=== PATIENT | female | born 1970 | race Caucasian/White ===

== ENCOUNTER 2017-02-22 09:56 | Inpatient (IN) | payer SELFPAY ==
[2017-02-22] VITALS (10 sets, daily range): BP systolic 85–137; BP diastolic 62–96; PULSE 79–136; RESP 10–20; TEMP 97–98.4; O2SAT 96–100
[~2017-02-22] VITALS: Ht 170.2 cm; Wt 51.4 kg
[~2017-02-22 09:56] MED LIST: BACI500O8 TOP; BACT PO; FLUO40CA PO; FOLI800T12 PO; FURO20 PO; GABA100C4 PO; LACT20SO4 PO; MULT-65 PO; PROB1TAB; PROP1TAB66 PO; THIA100T PO; TRAZ100 PO
[2017-02-22] MEDS ORDERED: SODIUM CHLORIDE 0.9% FLUSH 10 ML FLUSH IV FLUSH PRN ×2 (10:15→12:45)
[2017-02-22] MEDS ORDERED: SODIUM CHLOR 0.9% 1000 ML INJ 1,000 ML IV SCH (10:15)
[2017-02-22] MEDS ORDERED: ONDANSETRON HCL 4 MG/2 ML VIAL IVP ONE (10:15)
--- NOTE | 2017-02-22 10:30 | PD ---
HPI Chief Complaint: Fall Time Seen by Provider: 10:15 Travel History International Travel<30 days: No Contact w/Intl Traveler<30days: No Traveled to known affect area: No History of Present Illness HPI The patient is a 46-year-old female who presents to the emergency department after a fall that occurred Tuesday night. The patient has a history of heavy alcohol use, was drinking Tuesday night, when she fell. The patient is unsure if there was loss of consciousness, however, notes that she has a hematoma over the frontal forehead as well as bruising under the eyes bilaterally. The patient also states that she fell 3 weeks ago, struck the back of her head, and has a hematoma that has progressively gotten smaller over the last several weeks. The patient does complain of mild frontal headache. The patient now complains of nausea, vomiting, with a few episodes of diarrhea. The patient estimates 5-10 pound weight loss of last several days secondary to poor oral intake. The patient does have a history of chronic pancreatitis secondary to alcohol use as well as a history of neuropathy secondary to alcohol use and diabetes. The patient denies any chest pain, shortness of breath, or abdominal pain. The patient also states she was recently placed on a blood pressure medication by her primary physician, states she's felt dizzy since she started the blood pressure medication several weeks ago. Symptoms are moderate, possibly exacerbated by alcohol use, and there are no current alleviating factors. PFSH Past Medical History Anemia: Yes Arthritis: No Asthma: No Autoimmune Disease: No Anxiety: Yes Depression: Yes Heart Rhythm Problems: No Cancer: No Cardiovascular Problems: Yes High Cholesterol: Yes Chemotherapy: No Chest Pain: No Congestive Heart Failure: No COPD: No Cerebrovascular Accident: No Diabetes: Yes Patient Takes Glucophage: No Diminished Hearing: No Endocrine: No Gastrointestinal Disorders: Yes (Cirrhosis ) GERD: Yes Genitourinary: Yes (STATES THERE IS A MASS LT KIDNEY) Headaches: No Hiatal Hernia: No Hypertension: Yes Immune Disorder: No Implanted Vascular Access Dvce: Yes Kidney Stones: No Musculoskeletal: No Neurologic: Yes (NEUROPATHY) Psychiatric: Yes Reproductive: No Respiratory: No Immunizations Current: No Migraines: Yes Pancreatitis: Yes Radiation Therapy: No Renal Failure: Yes Seizures: Yes Sickle Cell Disease: No Sleep Apnea: No Thyroid Disease: No Ulcer: No Tetanus Vaccination: > 5 Years Influenza Vaccination: Yes ?: Not Menopausal: Yes : 1 Para: 0 Miscarriage: 1 : 0 Ovarian Cysts: Yes Past Surgical History Abdominal Surgery: No AICD: No Arteriovenous Shunt: No Body Medical Devices: Bilateral brest implants Cardiac Surgery: Yes Ear Surgery: No Endocrine Surgery: No Eye Surgery: No Genitourinary Surgery: No Gynecologic Surgery: Yes (Biopsy of cervix) Insulin Pump: No Joint Replacement: No Neurologic Surgery: No Oral Surgery: No Pacemaker: No Thoracic Surgery: Yes (Breast augmentation) Other Surgery: Yes (breast implants) Social History Alcohol Use: Yes (STATES CURRENT ALCOHOL WITHDRAWAL) Tobacco Use: No Substance Use: Yes (ABUSE OF "PILLS" ) Allergies-Medications (Allergen,Severity, Reaction): Coded Allergies: Blueberry (Verified Allergy, Severe, 02/22/17) Aspirin (Verified Allergy, Intermediate, 02/22/17) Reported Meds & Prescriptions Reported Meds & Active Scripts Active Reported [Hypertension Med] Prozac (Fluoxetine HCl) 40 Mg Cap 40 Mg PO DAILY Protonix (Pantoprazole Sodium) 40 Mg Tab 40 Mg PO DAILY Levemir Inj (Insulin Detemir) 1,000 unit/ 10 ML Vial 10 Units SQ HS Do not mix with any other Insulin. Novolog Inj (Insulin Aspart) 1,000 Unit/10 Ml Vial 0 SQ DIRECTED Sliding Scale as directed. Gabapentin 600 Mg Tab 600 Mg PO TID Review of Systems Except as stated in HPI: all other systems reviewed are Neg General / Constitutional: No: Fever Eyes: Positive: Blurred Vision HENT: Positive: Headaches, No: Neck Pain Cardiovascular: No: Chest Pain or Discomfort Respiratory: No: Shortness of Breath Gastrointestinal: Positive: Nausea, Vomiting, Diarrhea, No: Abdominal Pain Musculoskeletal: Positive: Weakness Neurologic: Positive: Weakness, Dizziness, Headache, Paresthesia (history of neuropathy secondary to alcohol use and diabetes), No: Change in Mentation Psychiatric: Positive: Substance Abuse (alcohol abuse) Physical Exam Narrative GENERAL: Awake, alert, pleasant 46-year-old female who appears her stated age and is in no acute respiratory distress. SKIN: Focused skin assessment warm/dry. HEAD: Hematoma noted over the right frontal forehead. Raccoon eyes bilaterally. Small hematoma to the superior occipital region. EYES: Pupils equal and round. Pupils are 3 mm bilateral and reactive. EOMs are intact. ENT: No nasal bleeding or discharge. Mucous membranes pink and moist. NECK: Trachea midline. No JVD. No tenderness of the cervical vertebrae. CARDIOVASCULAR: Regular, tachycardic with a heart rate of 130. RESPIRATORY: No accessory muscle use. Clear to auscultation. Breath sounds equal bilaterally. GASTROINTESTINAL: Abdomen soft, non-tender, nondistended. No rebound tenderness. MUSCULOSKELETAL: No obvious deformities. No clubbing. No cyanosis. No edema. Atrophy of the arms and legs noted. NEUROLOGICAL: Awake and alert. No obvious cranial nerve deficits. Motor grossly within normal limits. Normal speech. Nonfocal. PSYCHIATRIC: Appropriate mood and affect; insight and judgment normal. Data Data Last Documented VS Vital Signs Date Time Temp Pulse Resp B/P Pulse Ox O2 Delivery O2 Flow Rate FiO2 02/22/17 10:22 116 18 99 Room Air 02/22/17 10:22 85/70 02/22/17 09:59 98.4 Orders Complete Blood Count With Diff (02/22/17 10:15) Comprehensive Metabolic Panel (02/22/17 10:15) Lipase (02/22/17 10:15) Prothrombin Time / Inr (Pt) (02/22/17 10:15) Act Partial Throm Time (Ptt) (02/22/17 10:15) Iv Access Insert/Monitor (02/22/17 10:15) Ecg Monitoring (02/22/17 10:15) Oximetry (02/22/17 10:15) Ondansetron Inj (Zofran Inj) (02/22/17 10:15) Sodium Chlor 0.9% 1000 Ml Inj (Ns 1000 M (02/22/17 10:15) Sodium Chloride 0.9% Flush (Ns Flush) (02/22/17 10:15) Magnesium (Mg) (02/22/17 10:15) Ct Brain W/O Iv Contrast(Rout) (02/22/17 ) Sodium Chlor 0.9% 1000 Ml Inj (Ns 1000 M (02/22/17 11:30) Type And Screen (02/22/17 12:21) Potassium Chloride (Kcl) (02/22/17 12:30) Potassium Chlor 20 Meq Premix (Kcl 20 Me (02/22/17 12:30) Admit Order (Ed Use Only) (02/22/17 12:43) Magnesium Sulfate 1 Gm Premix (Magnesium (02/22/17 12:45) Labs Laboratory Tests Test 02/22/17 11:00 White Blood Count 2.7 TH/MM3 Red Blood Count 1.99 MIL/MM3 Hemoglobin 7.7 GM/DL Hematocrit 23.0 % Mean Corpuscular Volume 115.8 FL Mean Corpuscular Hemoglobin 38.5 PG Mean Corpuscular Hemoglobin 33.2 % Concent Red Cell Distribution Width 20.4 % Platelet Count 59 TH/MM3 Mean Platelet Volume 6.7 FL Neutrophils (%) (Auto) 58.3 % Lymphocytes (%) (Auto) 29.4 % Monocytes (%) (Auto) 10.8 % Eosinophils (%) (Auto) 0.3 % Basophils (%) (Auto) 1.2 % Neutrophils # (Auto) 1.6 TH/MM3 Lymphocytes # (Auto) 0.8 TH/MM3 Monocytes # (Auto) 0.3 TH/MM3 Eosinophils # (Auto) 0.0 TH/MM3 Basophils # (Auto) 0.0 TH/MM3 CBC Comment AUTO DIFF Differential Comment AUTO DIFF CONFIRMED Platelet Estimate LOW Platelet Morphology Comment NORMAL Target Cells 2+ Ovalocytes 1+ Keratocytes OCC Prothrombin Time 13.3 SEC Prothromb Time International 1.2 RATIO Ratio Activated Partial 23.4 SEC Thromboplast Time Sodium Level 135 MEQ/L Potassium Level 2.6 MEQ/L Chloride Level 96 MEQ/L Carbon Dioxide Level 28.6 MEQ/L Anion Gap 10 MEQ/L Blood Urea Nitrogen 7 MG/DL Creatinine 1.50 MG/DL Estimat Glomerular Filtration 37 ML/MIN Rate Random Glucose 100 MG/DL Calcium Level 9.6 MG/DL Magnesium Level 1.0 MG/DL Total Bilirubin 1.0 MG/DL Aspartate Amino Transf 218 U/L (AST/SGOT) Alanine Aminotransferase 73 U/L (ALT/SGPT) Alkaline Phosphatase 177 U/L Total Protein 8.2 GM/DL Albumin 3.9 GM/DL Lipase 45 U/L MDM Medical Decision Making Medical Screen Exam Complete: Yes Emergency Medical Condition: Yes Medical Record Reviewed: Yes Interpretation(s) Laboratory Tests Test 02/22/17 11:00 White Blood Count 2.7 TH/MM3 Red Blood Count 1.99 MIL/MM3 Hemoglobin 7.7 GM/DL Hematocrit 23.0 % Mean Corpuscular Volume 115.8 FL Mean Corpuscular Hemoglobin 38.5 PG Mean Corpuscular Hemoglobin 33.2 % Concent Red Cell Distribution Width 20.4 % Platelet Count 59 TH/MM3 Mean Platelet Volume 6.7 FL Neutrophils (%) (Auto) 58.3 % Lymphocytes (%) (Auto) 29.4 % Monocytes (%) (Auto) 10.8 % Eosinophils (%) (Auto) 0.3 % Basophils (%) (Auto) 1.2 % Neutrophils # (Auto) 1.6 TH/MM3 Lymphocytes # (Auto) 0.8 TH/MM3 Monocytes # (Auto) 0.3 TH/MM3 Eosinophils # (Auto) 0.0 TH/MM3 Basophils # (Auto) 0.0 TH/MM3 CBC Comment AUTO DIFF Differential Comment AUTO DIFF CONFIRMED Platelet Estimate LOW Platelet Morphology Comment NORMAL Target Cells 2+ Ovalocytes 1+ Keratocytes OCC Prothrombin Time 13.3 SEC Prothromb Time International 1.2 RATIO Ratio Activated Partial 23.4 SEC Thromboplast Time Sodium Level 135 MEQ/L Potassium Level 2.6 MEQ/L Chloride Level 96 MEQ/L Carbon Dioxide Level 28.6 MEQ/L Anion Gap 10 MEQ/L Blood Urea Nitrogen 7 MG/DL Creatinine 1.50 MG/DL Estimat Glomerular Filtration 37 ML/MIN Rate Random Glucose 100 MG/DL Calcium Level 9.6 MG/DL Magnesium Level 1.0 MG/DL Total Bilirubin 1.0 MG/DL Aspartate Amino Transf 218 U/L (AST/SGOT) Alanine Aminotransferase 73 U/L (ALT/SGPT) Alkaline Phosphatase 177 U/L Total Protein 8.2 GM/DL Albumin 3.9 GM/DL Lipase 45 U/L Last Impressions Head CT 02/22/17 0000 Signed Impressions: Service Date/Time: Wednesday, February 22, 2017 11:29 - CONCLUSION: Soft tissue swelling no evidence of hemorrhage. Vladimir Anderson MD Differential Diagnosis Differential diagnosis includes alcohol withdrawal, subdural hemorrhage, subarachnoid hemorrhage, basal skull fracture, hypomagnesemia, hypokalemia, dehydration. Narrative Course IV was established, labs are drawn and sent, and the patient was placed on cardiac telemetry monitoring and continuous pulse oximetry monitoring. CT of the brain was ordered. The patient was administered Zofran and IV fluids. The patient's CT of the brain is negative. The patient's hemoglobin, white count, and platelets are low, most likely myelosuppression from chronic alcohol use. The patient's potassium is low at 2.6, magnesium is low at 1.0, these will be replaced intravenously and orally. The patient is dehydrated, was administered 2 L of IV fluids, her blood pressure responded to 120/80 and her heart rate came down into the 80s. I believe the patient's anemia will be exacerbated as she was dehydrated, most likely will be less than 7, bili the patient does have symptomatic anemia and will require PRBC transfusion. Therefore, type and screen was ordered. I discussed the patient with the on-call hospitalist, Dr. Sorensen, who agrees with admission. Physician Communication Physician Communication I discussed the patient with Dr. Sorensen who agrees with admission. Diagnosis Primary Impression: Pancytopenia Additional Impressions: Symptomatic anemia Hypokalemia Hypomagnesemia Admitting Information Admitting Physician Requests: Admit Condition: Stable Albaro Rodriguez MD Feb 22, 2017 10:30
[2017-02-22] MEDS ORDERED: HYPERTENSION MED (10:33)
[2017-02-22] MEDS ORDERED: PROZ40CA PO (10:33)
[2017-02-22] MEDS ORDERED: NOVOLOGP2 SQ (10:33)
[2017-02-22] MEDS ORDERED: GABA600T PO (10:33)
[2017-02-22] MEDS ORDERED: LEVEMIR SQ (10:33)
[2017-02-22] MEDS ORDERED: PROT40TA PO (10:33)
[2017-02-22 11:20] LABS: AUTOMATED NEUTROPHIL # 1.6 TH/MM3 (1.8-7.7); BASOPHIL % 1.2 % (0.0-2.0); EOSINOPHIL % 0.3 % (0.0-4.0); LYMPH % 29.4 % (9.0-44.0); LYMPHOCYTE # 0.8 TH/MM3 (1.0-4.8); MEAN CELL VOLUME 115.8 FL (80.0-100.0); MEAN CORPUSCULAR HEMOGLOBIN 38.5 PG (27.0-34.0); MEAN CORPUSCULAR HGB CONC 33.2 % (32.0-36.0); MONO % 10.8 % (0.0-8.0); NEUT % 58.3 % (16.0-70.0); PLATELET COUNT 59 TH/MM3 (150-450); RED BLOOD COUNT 1.99 MIL/MM3 (4.00-5.30); RED CELL DISTRIBUTION WIDTH 20.4 % (11.6-17.2); WHITE BLOOD COUNT 2.7 TH/MM3 (4.0-11.0)
[2017-02-22] MEDS ORDERED: SODIUM CHLOR 0.9% 1000 ML INJ 1,000 ML IV ONE (11:30)
[2017-02-22 11:32] LABS: APTT (PATIENT) 23.4 SEC (24.3-30.1); HEMO FLAGS AUTO DIFF; INTERNATIONAL NORMALIZED RATIO 1.2 RATIO; PROTHROMBIN TIME - PATIENT 13.3 SEC (9.8-11.6)
--- NOTE | 2017-02-22 11:45 | RADHPO ---
EXAM DATE/TIME: 02/22/2017 11:29 [facility] COMPARISON: CT BRAIN W/O CONTRAST, October 04, 2016, 3:54. INDICATIONS : Fell and hit forehead. Headache. RADIATION DOSE: 61.21 CTDIvol (mGy) MEDICAL HISTORY : Seizures. Hypertension. SURGICAL HISTORY : Hysterectomy. ENCOUNTER: Initial ACUITY: 4 - 6 days PAIN SCALE: 3/10 LOCATION: frontal TECHNIQUE: Multiple contiguous axial images were obtained of the head. Using automated exposure control and adj ustment of the mA and/or kV according to patient size, radiation dose was kept as low as reasonably a chievable to obtain optimal diagnostic quality images. FINDINGS: CEREBRUM: The ventricles are normal for age. No evidence of midline shift, mass lesion, hemorrhage or acute in farction. No extra-axial fluid collections are seen. POSTERIOR FOSSA: The cerebellum and brainstem are intact. The 4th ventricle is midline. The cerebellopontine angle i s unremarkable. EXTRACRANIAL: The visualized portion of the orbits is intact. SKULL: The calvaria is intact. No evidence of skull fracture. There is soft tissue swelling over the right frontal and left parietal bone CONCLUSION: Soft tissue swelling no evidence of hemorrhage. Vladimir Anderson MD on February 22, 2017 at 11:40 Board Certified Radiologist. This report was verified electronically.
[2017-02-22 11:51] LABS: ALKALINE PHOSPHATASE 177 U/L (45-117); ALT (GPT) 73 U/L (10-53); ANION GAP 10 MEQ/L (5-15); AST (GOT) 218 U/L (15-37); BICARBONATE 28.6 MEQ/L (21.0-32.0); BLOOD UREA NITROGEN 7 MG/DL (7-18); CHLORIDE 96 MEQ/L (98-107); GLOMERULAR FILTRATION RATE 37 ML/MIN (>89); SODIUM (NA) 135 MEQ/L (136-145)
[2017-02-22 12:05] LABS: TARGET CELLS 2+ (NORMAL)
[2017-02-22 12:06] LABS: KERATOCYTES OCC (NORMAL); OVALOCYTES 1+ (NORMAL); PLATELET ESTIMATE SMEAR LOW (NORMAL); PLATELET MORPHOLOGY NORMAL (NORMAL)
[2017-02-22 12:07] LABS: SCAN/DIFF AUTO DIFF CONFIRMED
[2017-02-22 12:21] LABS: POTASSIUM 2.6 MEQ/L (3.5-5.1)
[2017-02-22] MEDS ORDERED: POTASSIUM CHLORIDE 20 MEQ CONTROLLED RELEASE TAB PO ONE (12:30)
[2017-02-22] MEDS ORDERED: POTASSIUM CHLOR 20 MEQ PREMIX 100 ML IV ONE (12:30)
[2017-02-22] MEDS ORDERED: LORazepam 2 MG TAB PO PRN (12:45)
[2017-02-22] MEDS ORDERED: LORazepam 2 MG/ML VIAL IV PUSH PRN ×4 (12:45)
[2017-02-22] MEDS ORDERED: ONDANSETRON HCL 4 MG/2 ML VIAL IVP PRN (12:45)
[2017-02-22] MEDS ORDERED: FLUMAZENIL 0.5 MG/5 ML VIAL IV PUSH PRN (12:45)
[2017-02-22] MEDS ORDERED: FOLIC ACID 1 MG TAB PO ONE (12:45)
[2017-02-22] MEDS ORDERED: NALOXONE HCL 0.4 MG/ML AMP IV PRN (12:45)
[2017-02-22] MEDS ORDERED: MAGNESIUM HYDROXIDE SUSP 30 ML CUP PO PRN (12:45)
[2017-02-22] MEDS ORDERED: ACETAMINOPHEN 325 MG TAB PO PRN ×2 (12:45→16:30)
[2017-02-22] MEDS ORDERED: MAGNESIUM SULFATE 1 GM PREMIX 100 ML IV SCH (12:45)
--- NOTE | 2017-02-22 13:03 | HHI.HP ---
HPI Service [facility] Primary Care Physician Brent Goodman MD Admission Diagnosis pancytopenia, symptomatic anemia, hypokalemia, hypomagnesemia Diagnoses: Travel History International Travel<30 Days: No Contact w/Intl Traveler <30 Da: No Traveled to Known Affected Are: No History of Present Illness Ms. Bearden is a 46 year old female with a history of alcoholism who presents to the ED for an evaluation of her head after a fall that occurred on Tuesday. She was drinking on Tuesday night. She sustained a hematoma over her frontal forehead as well as bruises around her eyes. She reported falling 3 weeks ago and sustained a hematoma at the back of her head. She reports no chest pain, shortness of breath, fever, chills. She does report nausea and vomiting for the last 4 days and diarrhea during the past one month. She has not been able to eat or drink much except yesterday she had half of a hamburger. Denies any changes in bowel habits. She reports about 15 lbs weight loss in the last 4-5 days. On arrival temperature 98.4 pulse 136 respiration 18 blood pressure 90/62 pulse oximetry 96% on room air. WBC 2.7 hemoglobin 7.7 hematocrit 23 MCV 115.8 platelet count 59. Sodium 135 potassium 2.6 magnesium 1.0 BUN 7 creatinine 1.5. AST 218 ALD [address] head shows soft tissue swelling without any evidence of hemorrhage. Review of Systems Except as stated in HPI: all other systems reviewed are Neg Past Family Social History Past Medical History Chronic pancreatitis, diabetes mellitus, diabetic neuropathy, liver cirrhosis. Past Surgical History Bilateral breast augmentation, cervical cone biopsy Reported Medications Active Reported [Hypertension Med] Prozac (Fluoxetine HCl) 40 Mg Cap 40 Mg PO DAILY Protonix (Pantoprazole Sodium) 40 Mg Tab 40 Mg PO DAILY Levemir Inj (Insulin Detemir) 1,000 unit/ 10 ML Vial 10 Units SQ HS Do not mix with any other Insulin. Novolog Inj (Insulin Aspart) 1,000 Unit/10 Ml Vial 0 SQ DIRECTED Sliding Scale as directed. Gabapentin 600 Mg Tab 600 Mg PO TID Allergies: Coded Allergies: Blueberry (Verified Allergy, Severe, 02/22/17) Aspirin (Verified Allergy, Intermediate, 02/22/17) Family History Father - from throat and lung cancer. Also had heart disease, diabetes mellitus. Mother has atrial fibrillation. Social History Patient denies any smoking or using illicit drugs. She drinks vodka whenever she can. Physical Exam Vital Signs Vital Signs Date Time Temp Pulse Resp B/P Pulse Ox O2 Delivery O2 Flow Rate FiO2 02/22/17 10:22 116 18 99 Room Air 02/22/17 10:22 116 18 85/70 99 Room Air 02/22/17 09:59 98.4 136 18 90/62 96 Physical Exam GENERAL: This is a well-nourished, well-developed patient, in no apparent distress. SKIN: No rashes, ecchymoses or lesions. Warm and dry. HEAD: Atraumatic. Normocephalic. No temporal or scalp tenderness. Forehead and occipital hematoma noted. No drainage. EYES: Pupils equal round and reactive. No injection or drainage. Bilateral orbital ecchymosis noted. ENT: Nose without bleeding, purulent drainage or septal hematoma. Airway patent. NECK: Trachea midline. No lymphadenopathy. Supple, nontender, no meningeal signs. CARDIOVASCULAR: Regular rate and rhythm without murmurs, gallops, or rubs. No JVD. RESPIRATORY: Clear to auscultation. Breath sounds equal bilaterally. No wheezes , rales, or rhonchi. GASTROINTESTINAL: Abdomen soft, non-tender, nondistended. No guarding. MUSCULOSKELETAL: Extremities without clubbing, cyanosis, or edema. NEUROLOGICAL: Awake and alert. Cranial nerves II through XII intact. No focal neurological deficits. Normal speech. Laboratory Laboratory Tests Test 02/22/17 11:00 White Blood Count 2.7 Red Blood Count 1.99 Hemoglobin 7.7 Hematocrit 23.0 Mean Corpuscular Volume 115.8 Mean Corpuscular Hemoglobin 38.5 Mean Corpuscular Hemoglobin 33.2 Concent Red Cell Distribution Width 20.4 Platelet Count 59 Mean Platelet Volume 6.7 Neutrophils (%) (Auto) 58.3 Lymphocytes (%) (Auto) 29.4 Monocytes (%) (Auto) 10.8 Eosinophils (%) (Auto) 0.3 Basophils (%) (Auto) 1.2 Neutrophils # (Auto) 1.6 Lymphocytes # (Auto) 0.8 Monocytes # (Auto) 0.3 Eosinophils # (Auto) 0.0 Basophils # (Auto) 0.0 CBC Comment AUTO DIFF Differential Comment AUTO DIFF CONFIRMED Platelet Estimate LOW Platelet Morphology Comment NORMAL Target Cells 2+ Ovalocytes 1+ Keratocytes OCC Prothrombin Time 13.3 Prothromb Time International 1.2 Ratio Activated Partial 23.4 Thromboplast Time Sodium Level 135 Potassium Level 2.6 Chloride Level 96 Carbon Dioxide Level 28.6 Anion Gap 10 Blood Urea Nitrogen 7 Creatinine 1.50 Estimat Glomerular Filtration 37 Rate Random Glucose 100 Calcium Level 9.6 Magnesium Level 1.0 Total Bilirubin 1.0 Aspartate Amino Transf 218 (AST/SGOT) Alanine Aminotransferase 73 (ALT/SGPT) Alkaline Phosphatase 177 Total Protein 8.2 Albumin 3.9 Lipase 45 Result Diagram: 02/22/17 1100 02/22/17 1100 Imaging Last Impressions Head CT 02/22/17 0000 Signed Impressions: Service Date/Time: Wednesday, February 22, 2017 11:29 - CONCLUSION: Soft tissue swelling no evidence of hemorrhage. Vladimir Anderson MD Assessment and Plan Problem List: (1) Alcohol abuse with intoxication ICD Code: F10.129 Status: Acute (2) DM (diabetes mellitus) ICD Code: E11.9 Status: Acute (3) Alcoholic cirrhosis ICD Code: K70.30 Status: Acute (4) Hypokalemia ICD Code: E87.6 Status: Acute (5) Hypomagnesemia ICD Code: E83.42 Status: Acute (6) Pancytopenia ICD Code: D61.818 Status: Acute (7) MARNI (acute kidney injury) ICD Code: N17.9 Status: Acute Assessment and Plan Ms. Bearden is a pleasant 46-year-old female with a history of alcoholism , diabetes mellitus who presented to the emergency Department for an evaluation of her head after sustaining a fall on 02/18/2017. CT head shows soft tissue hematoma but no intracranial hemorrhage. Patient was found to have acute kidney injury, hypomagnesemia, hypokalemia. - Acute alcohol intoxication - Fall due to alcohol use - Soft tissue hematoma on the forehead and back of head - CT head reviewed by me on 02/22/2017 which showed soft tissue swelling. - Extensively counseled patient regarding her alcohol habits. Patient verbalized understanding and motivated to quit alcohol. - Initiate CIWA protocol. - Thiamine 100 mg IV daily for 3 days then thiamine 100 mg by mouth daily for 30 days. - Folic acid 1 mg by mouth daily - Will check H&H this PM. - Acute kidney injury creatinine 1.5 - Hypomagnesemia with magnesium level I.0. - Hypokalemia with potassium level 2.6 - MARNI is likely due to dehydration. - Electrolyte depletion is likely due to nausea, vomiting, diarrhea as well as alcohol abuse. - Continue normal saline at 150 cc per hour. - Replace potassium with IV potassium. - We'll also start by mouth potassium tomorrow when patient is able to tolerate by mouth medications better. - Replace magnesium with 6 g of magnesium between today and tomorrow. - Anxiety - Will start Ativan 1mg every 8 hours when necessary for anxiety, agitation. - Chronic pain - Pain from head injury - Will start Percocet 5/325 Q6hrs PRN for pain 5-10. - Acetaminophen for headache, fever, pain 1-4. Full code. SCDs. Physician Certification 2 Midnight Certification Type: Admission for Inpatient Services Order for Inpatient Services The services are ordered in accordance with Medicare regulations or non- Medicare payer requirements, as applicable. In the case of services not specified as inpatient-only, they are appropriately provided as inpatient services in accordance with the 2-midnight benchmark. Estimated LOS (days): 2 days is the estimated time the patient will need to remain in the hospital, assuming treatment plan goals are met and no additional complications. Post-Hospital Plan: Home Akhil Sorensen DO Feb 22, 2017 1:03 pm
[2017-02-22] MEDS: MAGNESIUM SULFATE 1 GM PREMIX 100 ML IV SCH ×4 (13:32→18:00)
[2017-02-22] MEDS: SODIUM CHLOR 0.9% 1000 ML INJ 1,000 ML IV SCH ×2 (13:32→21:42)
[2017-02-22] MEDS ORDERED: THIAMINE INJ 100 MG in SODIUM CHLORIDE 0.9% INJ 100 ML IV ONE (14:00)
[2017-02-22] MEDS: POTASSIUM CHLOR 20 MEQ PREMIX 100 ML IV SCH ×2 (14:45→14:50)
[2017-02-22] MEDS: LORazepam 1 MG TAB PO PRN ×2 (14:45→22:53)
[2017-02-22] MEDS: oxyCODONE/ACETAMINOPHEN 5 MG/325 MG TAB PO PRN ×2 (14:45→20:44)
[2017-02-22 15:51] LABS: REVIEW FLAG FINAL
[2017-02-22 15:56] LABS: HEMATOCRIT 19.7 % (35.0-46.0)
[2017-02-22] MEDS ORDERED: SODIUM CHLOR 0.9% 250 ML INJ 250 ML IV ONE (16:30)
[2017-02-22] MEDS ORDERED: diphenhydrAMINE HCL 25 MG CAP PO PRN (16:30)
[2017-02-22] MEDS ORDERED: GLUCAGON 1 MG/ML VIAL OTHER PRN (16:30)
[2017-02-22] MEDS ORDERED: DEXTROSE 50% IN WATER 50 ML VIAL(D50) IV PUSH PRN (16:30)
[2017-02-22 20:52] LABS: POTASSIUM 3.8 MEQ/L (3.5-5.1)
[2017-02-22 20:55] LABS: BICARBONATE 26.4 MEQ/L (21.0-32.0)
[2017-02-22] MEDS: SODIUM CHLORIDE 0.9% FLUSH 10 ML FLUSH IV FLUSH SCH (21:00)
[2017-02-22 21:36] LABS: MAGNESIUM 1.6 MG/DL (1.5-2.5)
[2017-02-22] MEDS: INSULIN ASPART SUPPLEMENTAL SCALE SQ SCH (21:42)
[2017-02-23] VITALS (9 sets, daily range): BP systolic 115–158; BP diastolic 71–116; PULSE 70–93; RESP 15–20; TEMP 97–98.5; O2SAT 97–100
[2017-02-23] MEDS: oxyCODONE/ACETAMINOPHEN 5 MG/325 MG TAB PO PRN ×5 (03:09→22:06)
[2017-02-23] MEDS: SODIUM CHLOR 0.9% 1000 ML INJ 1,000 ML IV SCH ×4 (03:09→22:35)
[2017-02-23] MEDS: INSULIN ASPART SUPPLEMENTAL SCALE SQ SCH ×4 (05:29→21:12)
[2017-02-23 06:20] LABS: AUTOMATED NEUTROPHIL # 0.6 TH/MM3 (1.8-7.7); BASOPHIL % 1.9 % (0.0-2.0); EOSINOPHIL % 0.5 % (0.0-4.0); HEMATOCRIT 27.4 % (35.0-46.0); LYMPH % 49.5 % (9.0-44.0); LYMPHOCYTE # 0.8 TH/MM3 (1.0-4.8); MEAN CELL VOLUME 101.7 FL (80.0-100.0); MEAN CORPUSCULAR HGB CONC 33.4 % (32.0-36.0); MONO % 6.5 % (0.0-8.0); NEUT % 41.6 % (16.0-70.0); PLATELET COUNT 43 TH/MM3 (150-450); RED BLOOD COUNT 2.69 MIL/MM3 (4.00-5.30); WHITE BLOOD COUNT 1.5 TH/MM3 (4.0-11.0)
[2017-02-23 06:27] LABS: POTASSIUM 3.2 MEQ/L (3.5-5.1)
[2017-02-23] MEDS: LORazepam 1 MG TAB PO PRN ×3 (06:34→21:12)
[2017-02-23 06:58] LABS: HEMO FLAGS AUTO DIFF
[2017-02-23 07:33] LABS: KERATOCYTES OCC (NORMAL); OVALOCYTES 1+ (NORMAL); TARGET CELLS 1+ (NORMAL)
[2017-02-23 07:34] LABS: PLATELET ESTIMATE SMEAR LOW (NORMAL); PLATELET MORPHOLOGY NORMAL (NORMAL); SCAN/DIFF AUTO DIFF CONFIRMED
[2017-02-23] MEDS ORDERED: THIAMINE INJ 100 MG in SODIUM CHLORIDE 0.9% INJ 100 ML IV SCH (09:00)
[2017-02-23] MEDS: SODIUM CHLORIDE 0.9% FLUSH 10 ML FLUSH IV FLUSH SCH ×2 (09:00→20:30)
--- NOTE | 2017-02-23 09:07 | HHI.PR ---
Subjective Remarks Follow up for Alcoholism, fall, pancytopenia. Patient is doing well. No fever, chills. Appetite is improved. Objective Vitals Vital Signs Date Time Temp Pulse Resp B/P Pulse Ox O2 Delivery O2 Flow Rate FiO2 02/23/17 08:20 97.5 76 18 135/98 99 02/23/17 05:11 97.0 70 18 153/103 100 02/23/17 03:57 97.0 76 18 153/103 02/23/17 02:06 97.9 72 18 137/94 02/23/17 00:52 97.2 79 18 115/87 02/23/17 00:00 98.4 79 20 125/71 99 02/22/17 22:55 97.6 86 20 125/71 100 02/22/17 22:53 97.6 89 18 125/75 100 02/22/17 22:23 97.0 79 10 117/80 02/22/17 21:00 80 02/22/17 20:00 97.0 79 20 137/96 100 02/22/17 15:47 82 16 132/70 99 02/22/17 15:46 18 02/22/17 13:03 82 18 125/80 100 Room Air 02/22/17 11:45 83 18 101/72 100 Room Air 02/22/17 10:22 116 18 99 Room Air 02/22/17 10:22 116 18 85/70 99 Room Air 02/22/17 09:59 98.4 136 18 90/62 96 I/O 02/22/17 02/22/17 02/22/17 02/23/17 02/23/17 02/23/17 07:00 15:00 23:00 07:00 15:00 23:00 Intake Total 240 ml 2800 ml Balance 240 ml 2800 ml Intake Oral 240 ml 1800 ml IV Total 300 ml Packed Cells 700 ml # Voids 1 2 # Bowel Movements 0 0 Result Diagram: 02/23/17 0602/23/17 06 Imaging Last Impressions Head CT 02/22/17 0000 Signed Impressions: Service Date/Time: Wednesday, February 22, 2017 11:29 - CONCLUSION: Soft tissue swelling no evidence of hemorrhage. Vladimir Anderson MD Objective Remarks GENERAL: Alert, oriented x 3, NAD. SKIN: Warm and dry. HEAD: Normocephalic. Forehead and occipital hematoma noted. EYES: No scleral icterus. No injection or drainage. NECK: Supple, trachea midline. No JVD or lymphadenopathy. CARDIOVASCULAR: Regular rate and rhythm without murmurs, gallops, or rubs. RESPIRATORY: Breath sounds equal bilaterally. No accessory muscle use. GASTROINTESTINAL: Abdomen soft, non-tender, nondistended. MUSCULOSKELETAL: No cyanosis, or edema. BACK: Nontender without obvious deformity. No CVA tenderness. Procedures None. A/P Problem List: (1) Alcohol abuse with intoxication ICD Code: F10.129 Status: Acute (2) DM (diabetes mellitus) ICD Code: E11.9 Status: Acute (3) Alcoholic cirrhosis ICD Code: K70.30 Status: Acute (4) Hypokalemia ICD Code: E87.6 Status: Acute (5) Hypomagnesemia ICD Code: E83.42 Status: Acute (6) Pancytopenia ICD Code: D61.818 Status: Acute (7) MARNI (acute kidney injury) ICD Code: N17.9 Status: Acute Assessment and Plan Ms. Bearden is a pleasant 46-year-old female with a history of alcoholism , diabetes mellitus who presented to the emergency Department for an evaluation of her head after sustaining a fall on 02/18/2017. CT head shows soft tissue hematoma but no intracranial hemorrhage. Patient was found to have acute kidney injury, hypomagnesemia, hypokalemia. - Acute alcohol intoxication - Fall due to alcohol use - Soft tissue hematoma on the forehead and back of head - CT head reviewed by me on 02/22/2017 which showed soft tissue swelling. - Extensively counseled patient on 02/22/2017 regarding her alcohol habits. - Patient verbalized understanding and motivated to quit alcohol. - Continue CIWA protocol. - Thiamine 100 mg IV daily for 3 days then thiamine 100 mg by mouth daily for 30 days. - Folic acid 1 mg by mouth daily - Anemia - likely from alcohol abuse - Thrombocytopenia - Moderate Neutropenia - Possibly related to alcohol abuse. - Will obtain Vitamin B12 leve, Folate leve, ESR, CRP, Hepatitis panel and HIV screening as well as peripheral smear. - If patient has even one fever reading of more than 100.4 F, Consider initiating Cefepime. - Will consult Hematology for further input. Patient may need a bone marrow bx. - Acute kidney injury creatinine 1.5 --> 1.10. - Hypomagnesemia with magnesium level I.0 --> 1.6 - Hypokalemia with potassium level 2.6 --> 3.2 - MARNI is likely due to dehydration. - Electrolyte depletion is likely due to nausea, vomiting, diarrhea as well as alcohol abuse. - Continue normal saline at 150 cc per hour. - Replaced K+ with IV KCL. Will start KCL 10meq Q8hrs X 5 days. - Replace magnesium with 6 g of magnesium. Will give 1 g more of MgSO4 IV. - Anxiety - Ativan 1mg every 8 hours when necessary for anxiety, agitation. - Chronic pain - Pain from head injury - Percocet 5/325 Q6hrs PRN for pain 5-10. - Acetaminophen for headache, fever, pain 1-4. - Restart Gabapentin 300mg TID (reduced from her home dose 600mg TID) Full code. SCDs. Akhil Sorensen DO Feb 23, 2017 9:07 am
[2017-02-23] MEDS: GABAPENTIN 300 MG CAP PO SCH ×3 (09:37→17:31)
[2017-02-23] MEDS: FOLIC ACID 1 MG TAB PO SCH (09:37)
[2017-02-23] MEDS: MAGNESIUM SULFATE 1 GM PREMIX 100 ML IV SCH ×2 (09:38→11:51)
[2017-02-23 09:40] LABS: TRANSFERRIN IRON PROFILE 178 MG/DL (200-360)
[2017-02-23 10:32] LABS: WESTERGREN SEDIMENTATION RATE 33 mm/hr (0-20)
[2017-02-23 13:45] LABS: LDH SERUM 397 U/L (84-246)
[2017-02-23] MEDS ORDERED: MAGNESIUM SULFATE 1 GM PREMIX 100 ML IV ONE (14:00)
[2017-02-23] MEDS: POTASSIUM CHLORIDE 10 MEQ CONTROLLED RELEASE TAB PO SCH ×2 (14:09→20:30)
[2017-02-24] VITALS: BP 154/104; PULSE 76; RESP 16; TEMP 98.2; O2SAT 96
[2017-02-24] MEDS: LORazepam 1 MG TAB PO PRN ×5 (01:16→18:07)
[2017-02-24] MEDS: oxyCODONE/ACETAMINOPHEN 5 MG/325 MG TAB PO PRN ×4 (03:54→20:43)
[2017-02-24] MEDS: POTASSIUM CHLORIDE 10 MEQ CONTROLLED RELEASE TAB PO SCH (05:36)
[2017-02-24] MEDS: SODIUM CHLOR 0.9% 1000 ML INJ 1,000 ML IV SCH ×3 (05:38→18:35)
[2017-02-24 06:07] LABS: AUTOMATED NEUTROPHIL # 0.9 TH/MM3 (1.8-7.7); BASOPHIL % 1.3 % (0.0-2.0); HEMATOCRIT 26.9 % (35.0-46.0); LYMPH % 38.8 % (9.0-44.0); LYMPHOCYTE # 0.7 TH/MM3 (1.0-4.8); MEAN CELL VOLUME 100.6 FL (80.0-100.0); MEAN CORPUSCULAR HEMOGLOBIN 34.2 PG (27.0-34.0); MONO % 10.2 % (0.0-8.0); NEUT % 47.7 % (16.0-70.0); PLATELET COUNT 56 TH/MM3 (150-450); RED BLOOD COUNT 2.68 MIL/MM3 (4.00-5.30); WHITE BLOOD COUNT 1.8 TH/MM3 (4.0-11.0)
[2017-02-24 06:10] LABS: HEMO FLAGS AUTO DIFF; POTASSIUM 3.2 MEQ/L (3.5-5.1)
[2017-02-24 06:24] LABS: BICARBONATE 30.1 MEQ/L (21.0-32.0); MAGNESIUM 1.1 MG/DL (1.5-2.5)
[2017-02-24] MEDS: INSULIN ASPART SUPPLEMENTAL SCALE SQ SCH ×4 (06:40→20:42)
[2017-02-24 06:42] LABS: CORRECTED NUCLEATED RBC 3 /100 WBC (0-0); NEUTROPHIL # MANUAL DIFF 1.2 TH/MM3 (1.8-7.7); POLYS (SEG NEUTROPHILS) 65 % (16-70); WBC DIFF SAMPLE 100
[2017-02-24 06:43] LABS: PLATELET ESTIMATE SMEAR LOW (NORMAL); PLATELET MORPHOLOGY NORMAL (NORMAL); SCAN/DIFF FINAL DIFF MANUAL
--- NOTE | 2017-02-24 07:11 | MB ---
cc: CALEB LANIER M.D. DATE OF CONSULTATION 02/23/2017 REASON FOR CONSULTATION Consult requested by HEPAS for evaluation of pancytopenia. HISTORY OF PRESENT ILLNESS This is a 46-year-old female. She has a history of chronic alcoholism. She came to the emergency room after she had a fall last week Tuesday. She had raccoon eyes. She had a CT scan of the brain which did not show any significant findings. The patient keeps falling lately. She had another fall three weeks ago and sustained hematoma on the back of the head. She had continues to drink alcohol. The blood test shows pancytopenia and she is hypotensive on admission. The patient is now admitted to the hospital. I have been asked to see the patient for evaluation of pancytopenia. The patient is complaining of weakness, tiredness, and fatigue. She stated that she just woke up and she is slow to respond to the questions. The patient has received blood transfusion two units and her hemoglobin has improved from 7.7-9.1. The white count has gone down to from 2.7-1.5. The platelet count has gone down from 59-43. The patient is not bleeding. The rest of the review of system is negative. PAST MEDICAL HISTORY 1. Chronic alcoholism 2. Cervical dysplasia status post cone biopsy 3. Seizure disorder PAST SURGICAL HISTORY 1. LEEP procedure 2. Breast augmentation ALLERGIES ASPIRIN MEDICATIONS Please see the EMR. FAMILY HISTORY Parents are alive and well. She does not have any brothers. She has one sister who is a physician. The patient does not have any children. SOCIAL HISTORY The patient is single, lives with a boyfriend. She drinks alcohol on a regular basis. 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 PHYSICAL EXAM This is a well-developed chronically ill-appearing white female in no apparent distress. VITAL SIGNS: Temperature 97.2, heart rate is 75, blood pressure 129/91. HEENT: PERRLA, EOMI. Anicteric, periorbital bruising noted due to the fall. NECK: No lymphadenopathy noted. LUNGS: Clear. No wheezing, rhonchi or rales. HEART: Regular rate and rhythm. ABDOMEN: Soft and nontender. No hepatosplenomegaly. EXTREMITIES: No pedal edema. NEUROLOGIC: The patient is awake, lethargic, slow to respond to the questions. SKIN: Bruises noted, as well as periorbital hematoma. ASSESSMENT 1. Acute pancytopenia. This is most likely due to alcohol intoxication. 2. Multiple falls with periorbital hematoma. 3. Scalp hematoma from the fall. PLAN I have reviewed her available records. I have discussed with the patient regarding the acute pancytopenia. When she came in the hospital, the CBC showed a white count of 2.7, hemoglobin 7.7, hematocrit 23, platelet count is 59, MCV is 115. The CBC today showed a white count of 1.5, hemoglobin 9.1, hematocrit is 27.4, platelet count is 43. Serum haptoglobin is 106 which is normal. The sed rate is high at 33. The peripheral smear shows significant thrombocytopenia. There is absolute neutropenia and occasional nucleated red cells noted. Substantial numbers of fragmented red blood cells are not appreciated. The B12 is more than 2000. The folate is more than 20. Iron studies does not show any iron deficiency. Her liver enzymes are elevated. AST is 218, ALT 73, alkaline phosphate 177, LDH 397. C-reactive protein is 0.67. Her creatinine is improving, now it is 1.10, on admission it was 1.5. The total bilirubin is normal. There is no evidence of hemolysis. There is no evidence of nutritional deficiency that accounts for macrocytosis. HIV is negative. The hepatitis panel is still pending, but in the past, it has been negative on multiple occasions. The patient has macrocytosis with no deficiency of B12 and folate. This is most likely consistent with alcoholism. Alcoholism has a direct effect on bone marrow as a suppressant. I expect her bone marrow to recover once the alcohol effect wears off from the bone marrow. We also discussed about the possibility of bone marrow biopsy, however, the patient does not want to do the bone marrow biopsy at this time. She preferred to wait and see what happens by next week. I think it is very reasonable. There is no [place] to do the bone marrow biopsy. She had a normal white count in September of 2016. The platelet count has been running chronically low due to the alcoholism. I expect her blood count to improve by next week. If it does not, then certainly we can ask interventional radiologist to do the bone marrow biopsy. The patient preferred not to do the bone marrow biopsy at this time. She has a sister who is a physician. The patient has asked questions and these were answered to her satisfaction. Our team will follow while she is in the hospital. Thank you for asking my opinion. MD COLLEEN Waldrop/RUBENS /6:14 PM /6:52 AM
[2017-02-24 08:00] VITALS: BP 123/96; PULSE 102; RESP 18; TEMP 98; O2SAT 100
[2017-02-24] MEDS: FOLIC ACID 1 MG TAB PO SCH (09:49)
[2017-02-24] MEDS: SODIUM CHLORIDE 0.9% FLUSH 10 ML FLUSH IV FLUSH SCH ×2 (09:49→20:03)
[2017-02-24] MEDS: GABAPENTIN 300 MG CAP PO SCH ×3 (09:49→18:08)
--- NOTE | 2017-02-24 11:40 | HHI.PR ---
Subjective Remarks The patient's was at the bedside. Their questions were answered. The patient said that her shakes were getting better. She said her swelling in her forehead was getting better. She has been tolerating a diet. Objective Vitals Vital Signs Date Time Temp Pulse Resp B/P Pulse Ox O2 Delivery O2 Flow Rate FiO2 02/24/17 10:58 16 02/24/17 08:00 98.0 102 18 123/96 100 02/24/17 00:00 98.2 76 16 154/104 96 02/23/17 20:00 98.5 83 15 146/102 97 02/23/17 16:33 97.2 75 18 129/91 98 02/23/17 12:49 98.2 93 18 158/116 100 I/O 02/23/17 02/23/17 02/23/17 02/24/17 02/24/17 02/24/17 07:00 15:00 23:00 07:00 15:00 23:00 Intake Total 2800 ml 3347 ml 1020 ml Balance 2800 ml 3347 ml 1020 ml Intake Oral 1800 ml 600 ml 240 ml IV Total 300 ml 2447 ml 780 ml Packed Cells 700 ml Other 300 ml # Voids 2 4 3 # Bowel Movements 0 Result Diagram: 02/24/17 0535 02/24/17 0535 Imaging Last Impressions Head CT 02/22/17 0000 Signed Impressions: Service Date/Time: Wednesday, February 22, 2017 11:29 - CONCLUSION: Soft tissue swelling no evidence of hemorrhage. Vladimir Anderson MD Objective Remarks GENERAL: Alert, oriented x 3, NAD. SKIN: Warm and dry. HEAD: Normocephalic. Forehead and occipital hematoma noted. EYES: No scleral icterus. No injection or drainage. Bilateral ecchymoses around eyes. NECK: Supple, trachea midline. No JVD or lymphadenopathy. CARDIOVASCULAR: Regular rate and rhythm without murmurs, gallops, or rubs. RESPIRATORY: Breath sounds equal bilaterally. No accessory muscle use. GASTROINTESTINAL: Abdomen soft, mildly tender to palpation. MUSCULOSKELETAL: No cyanosis, or edema. BACK: Nontender without obvious deformity. No CVA tenderness. NEURO: Mildly tremulous. Procedures None. Medications and IVs Current Medications Medications (Trade) Dose Ordered Sig/Tang Route Start Time Stop Time Status Last Admin (NS 1000 ml Inj) 1,000 ml @ 150 mls/hr Q6H40M IV 02/22/17 12:42 02/24/17 05:38 (NS Flush) 2 ml UNSCH PRN IV FLUSH 02/22/17 12:45 (NS Flush) 2 ml BID IV FLUSH 02/22/17 21:00 02/24/17 09:49 (Tylenol) 650 mg Q4H PRN PO 02/22/17 12:45 (Zofran Inj) 4 mg Q6H PRN IVP 02/22/17 12:45 (Milk Of Magnesia Liq) 30 ml Q12H PRN PO 02/22/17 12:45 (Narcan Inj) 0.4 mg UNSCH PRN IV 02/22/17 12:45 (Romazicon Inj) 0.2 mg Q1M PRN IV PUSH 02/22/17 12:45 (Ativan) 1 mg Q4H PRN PO 02/22/17 12:45 02/24/17 05:36 (Ativan Inj) 1 mg Q4H PRN IV PUSH 02/22/17 12:45 (Ativan) 2 mg Q2H PRN PO 02/22/17 12:45 (Ativan Inj) 2 mg Q2H PRN IV PUSH 02/22/17 12:45 (Ativan Inj) 2 mg Q1H PRN IV PUSH 02/22/17 12:45 Lorazepam 2 mg 2 mg Q15M PRN IV PUSH 02/22/17 12:45 (Thiamine Inj/NS Inj) 101 ml @ 101 mls/hr DAILY IV 02/23/17 09:00 02/25/17 08:59 02/23/17 14:08 (Folate) 1 mg DAILY PO 02/23/17 09:00 02/24/17 09:49 (Ativan) 1 mg Q8HR PRN PO 02/22/17 14:15 02/24/17 09:53 (Percocet 5-325 Mg) 1 tab Q6H PRN PO 02/22/17 14:15 02/24/17 09:49 (D50w (Vial) Inj) 25 ml UNSCH PRN IV PUSH 02/22/17 16:30 Glucagon 1 mg 1 mg UNSCH PRN OTHER 02/22/17 16:30 (Magnesium Sulfate 1 Gm Premix) 100 ml @ 100 mls/hr Q1H IV 02/24/17 11:45 02/24/17 14:44 (Neurontin) 600 mg TID PO 02/24/17 13:00 UNV A/P Problem List: (1) Alcohol abuse with intoxication ICD Code: F10.129 Status: Acute (2) DM (diabetes mellitus) ICD Code: E11.9 Status: Acute (3) Alcoholic cirrhosis ICD Code: K70.30 Status: Acute (4) Hypokalemia ICD Code: E87.6 Status: Acute (5) Hypomagnesemia ICD Code: E83.42 Status: Acute (6) Pancytopenia ICD Code: D61.818 Status: Acute (7) MARNI (acute kidney injury) ICD Code: N17.9 Status: Acute Assessment and Plan Acute alcohol intoxication Patient was extensively counseled regarding her alcohol habits. Patient verbalized understanding and motivated to quit alcohol. - Continue CIWA protocol. - Thiamine 100 mg IV daily for 3 days then thiamine 100 mg by mouth daily for 30 days; Folic acid 1 mg by mouth daily. Pancytopenia Appreciate hematology consultation. Likely secondary to alcohol abuse. - Patient may need a bone marrow bx. Follow up with hematology. - Follow CBC. Hypokalemia/ Hypomagnesemia Electrolyte depletion is likely due to nausea, vomiting, diarrhea as well as alcohol abuse. - Replete and monitor. - Check phosphorus level. Head injury The pt presented to the emergency department for an evaluation of her head after sustaining a fall on 02/18/2017. CT head shows soft tissue hematoma but no intracranial hemorrhage. - pain control as needed. - PT. Neuropathy S/t alcohol abuse. - Restart Gabapentin 600mg TID. Full code. SCDs. Discharge Planning Awaiting clinical improvement. Vladimir Pratt DO Feb 24, 2017 11:40
[2017-02-24] MEDS ORDERED: MAGNESIUM SULFATE 1 GM PREMIX 100 ML IV SCH (11:45)
[2017-02-24] MEDS ORDERED: POTASSIUM CHLORIDE 25 MEQ EFFERVESCENT TAB PO ONE (11:45)
[2017-02-24 12:00] VITALS: BP 157/100; PULSE 79; RESP 18; TEMP 98.2; O2SAT 100
[2017-02-24 16:00] VITALS: BP 140/90; PULSE 88; RESP 18; TEMP 98.3; O2SAT 100
--- NOTE | 2017-02-24 17:03 | PD.ONC.PN ---
Subjective Subjective Remarks No bleeding reported. Has diffused muscle pain. No visual changes. Objective Data Date Time Temp Pulse Resp B/P Pulse Ox O2 Delivery O2 Flow Rate FiO2 02/24/17 15:52 18 02/24/17 12:00 98.2 79 18 157/100 100 02/24/17 08:00 98.0 102 18 123/96 100 02/24/17 00:00 98.2 76 16 154/104 96 02/23/17 20:00 98.5 83 15 146/102 97 02/24/17 02/24/17 02/24/17 07:00 15:00 23:00 Intake Total 1020 ml 250 ml Balance 1020 ml 250 ml Result Diagram: 02/24/17 0535 02/24/17 0535 Laboratory Results Laboratory Tests Test 02/24/17 05:35 White Blood Count 1.8 TH/MM3 Red Blood Count 2.68 MIL/MM3 Hemoglobin 9.1 GM/DL Hematocrit 26.9 % Mean Corpuscular Volume 100.6 FL Mean Corpuscular Hemoglobin 34.2 PG Mean Corpuscular Hemoglobin 34.0 % Concent Red Cell Distribution Width 27.0 % Platelet Count 56 TH/MM3 Mean Platelet Volume 7.4 FL Neutrophils (%) (Auto) 47.7 % Lymphocytes (%) (Auto) 38.8 % Monocytes (%) (Auto) 10.2 % Eosinophils (%) (Auto) 2.0 % Basophils (%) (Auto) 1.3 % Neutrophils # (Auto) 0.9 TH/MM3 Lymphocytes # (Auto) 0.7 TH/MM3 Monocytes # (Auto) 0.2 TH/MM3 Eosinophils # (Auto) 0.0 TH/MM3 Basophils # (Auto) 0.0 TH/MM3 CBC Comment AUTO DIFF Differential Total Cells 100 Counted Neutrophils % (Manual) 65 % Lymphocytes % 31 % Monocytes % 4 % Neutrophils # (Manual) 1.2 TH/MM3 Nucleated Red Blood Cells 3 /100 WBC Differential Comment FINAL DIFF MANUAL Platelet Estimate LOW Platelet Morphology Comment NORMAL Sodium Level 140 MEQ/L Potassium Level 3.2 MEQ/L Chloride Level 101 MEQ/L Carbon Dioxide Level 30.1 MEQ/L Anion Gap 9 MEQ/L Blood Urea Nitrogen 2 MG/DL Creatinine 0.80 MG/DL Estimat Glomerular Filtration 77 ML/MIN Rate Random Glucose 212 MG/DL Calcium Level 8.4 MG/DL Magnesium Level 1.1 MG/DL Administered Medications Medications (Trade) Dose Ordered Sig/Tang Route PRN Reason Start Time Stop Time Status Last Admin Dose Admin Sodium Chloride (NS 1000 ml Inj) 1,000 ml @ 150 mls/hr Q6H40M IV 02/22/17 12:42 02/24/17 05:38 Sodium Chloride (NS Flush) 2 ml BID IV FLUSH 02/22/17 21:00 02/24/17 09:49 Lorazepam 1 mg 1 mg Q4H PRN PO CIWA 8 - 10 02/22/17 12:45 02/24/17 12:28 Thiamine HCl/ Sodium Chloride (Thiamine Inj/NS Inj) 101 ml @ 101 mls/hr DAILY IV 02/23/17 09:00 02/25/17 08:59 02/23/17 14:08 Folic Acid (Folate) 1 mg DAILY PO 02/23/17 09:00 02/24/17 09:49 Lorazepam (Ativan) 1 mg Q8HR PRN PO ANXIETY AND/OR AGITATION 02/22/17 14:15 02/24/17 09:53 Oxycodone/ Acetaminophen (Percocet 5-325 Mg) 1 tab Q6H PRN PO PAIN SCALE 5 TO 10 02/22/17 14:15 02/24/17 14:14 Gabapentin (Neurontin) 600 mg TID PO 02/24/17 13:00 02/24/17 14:13 Objective Remarks GENERAL: Well-nourished, well-developed patient. SKIN: Warm and dry. HEAD: Normocephalic.Hematoma posterior and frontal scalp EYES: No scleral icterus. No injection or drainage. Periorbital ecchymosis bilaterally. NECK: Supple, trachea midline. No JVD or lymphadenopathy. LYMPHATIC: No adenopathy. CARDIOVASCULAR: Regular rate and rhythm without murmurs. RESPIRATORY: Breath sounds equal bilaterally. No accessory muscle use. GASTROINTESTINAL: Abdomen soft, non-tender, nondistended. EXTREMITIES: No cyanosis, or edema. MUSCULOSKELETAL: Adequate muscle tone. NEUROLOGICAL: No obvious focal deficit. Awake, alert, and oriented x3. PSYCHIATRIC: Appropriate mood and affect; insight and judgment normal. Assessment/Plan Problem List: (1) Pancytopenia Status: Acute Plan: Due to Etoh intoxication and bone marrow suppression. Hgb stable after transfusion. WBC and platelet trended up slightly. Anticipate blood counts to improve when ETOH effect wers off. If no improvement, then she will need bone marrow biopsy for further evaluation. Can be d/c from hematology standpoint if her counts continue to improve. (2) Alcohol abuse with intoxication Status: Acute Rich Lakhani MD Feb 24, 2017 17:03
[2017-02-24] MEDS: MAGNESIUM SULFATE 1 GM PREMIX 100 ML IV SCH ×3 (18:07→20:01)
[2017-02-24 20:00] VITALS: BP 156/105; PULSE 90; RESP 18; TEMP 98.6; O2SAT 98
[2017-02-24] MEDS ORDERED: THIAMINE INJ 100 MG in SODIUM CHLORIDE 0.9% INJ 100 ML IV ONE (21:00)
[2017-02-25] VITALS: BP 158/105; PULSE 85; RESP 16; TEMP 98.6; O2SAT 98
[2017-02-25] MEDS: LORazepam 1 MG TAB PO PRN ×3 (01:51→17:06)
[2017-02-25] MEDS: SODIUM CHLOR 0.9% 1000 ML INJ 1,000 ML IV SCH ×4 (01:52→20:02)
[2017-02-25] MEDS: oxyCODONE/ACETAMINOPHEN 5 MG/325 MG TAB PO PRN ×4 (01:52→21:32)
[2017-02-25] MEDS: INSULIN ASPART SUPPLEMENTAL SCALE SQ SCH ×4 (06:14→20:00)
[2017-02-25 06:40] LABS: AUTOMATED NEUTROPHIL # 1.3 TH/MM3 (1.8-7.7); BASOPHIL % 0.6 % (0.0-2.0); HEMATOCRIT 29.9 % (35.0-46.0); LYMPH % 31.3 % (9.0-44.0); LYMPHOCYTE # 0.7 TH/MM3 (1.0-4.8); MEAN CELL VOLUME 102.4 FL (80.0-100.0); MEAN CORPUSCULAR HEMOGLOBIN 34.3 PG (27.0-34.0); MEAN CORPUSCULAR HGB CONC 33.5 % (32.0-36.0); MONO % 12.2 % (0.0-8.0); NEUT % 54.9 % (16.0-70.0); PLATELET COUNT 68 TH/MM3 (150-450); RED BLOOD COUNT 2.92 MIL/MM3 (4.00-5.30); RED CELL DISTRIBUTION WIDTH 26.4 % (11.6-17.2); WHITE BLOOD COUNT 2.3 TH/MM3 (4.0-11.0)
[2017-02-25 06:45] LABS: HEMO FLAGS AUTO DIFF
[2017-02-25 06:47] LABS: POTASSIUM 3.6 MEQ/L (3.5-5.1)
[2017-02-25 06:54] LABS: BICARBONATE 35.2 MEQ/L (21.0-32.0)
[2017-02-25 06:55] LABS: MAGNESIUM 1.3 MG/DL (1.5-2.5)
[2017-02-25 07:07] LABS: PLATELET ESTIMATE SMEAR LOW (NORMAL); PLATELET MORPHOLOGY NORMAL (NORMAL); SCAN/DIFF AUTO DIFF CONFIRMED
[2017-02-25 08:00] VITALS: BP 156/93; PULSE 84; RESP 18; TEMP 98.1; O2SAT 97
[2017-02-25] MEDS: FOLIC ACID 1 MG TAB PO SCH (08:29)
[2017-02-25] MEDS: GABAPENTIN 300 MG CAP PO SCH ×3 (08:29→17:06)
[2017-02-25] MEDS: SODIUM CHLORIDE 0.9% FLUSH 10 ML FLUSH IV FLUSH SCH ×2 (08:49→20:01)
[2017-02-25] MEDS ORDERED: POTASSIUM CHLORIDE 20 MEQ CONTROLLED RELEASE TAB PO ONE (11:15)
[2017-02-25 12:00] VITALS: BP 160/90; PULSE 76; RESP 16; TEMP 97.7; O2SAT 98
[2017-02-25] MEDS: MAGNESIUM SULFATE 1 GM PREMIX 100 ML IV SCH ×4 (12:15→12:19)
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
[2017-02-25 13:39] LABS: INDIRECT BILIRUBIN 0.5 MG/DL (0.0-0.8); TOTAL BILIRUBIN ADULT 0.8 MG/DL (0.2-1.0)
[2017-02-25 16:00] VITALS: BP 127/86; PULSE 73; RESP 18; TEMP 97.3; O2SAT 96
[2017-02-25 20:44] VITALS: BP 147/97; PULSE 100; RESP 16; TEMP 96.6; O2SAT 100
[2017-02-26 00:29] VITALS: BP 157/103; PULSE 85; RESP 18; TEMP 98.3; O2SAT 97
[2017-02-26] MEDS: LORazepam 1 MG TAB PO PRN ×2 (01:09→09:31)
[2017-02-26] MEDS: SODIUM CHLOR 0.9% 1000 ML INJ 1,000 ML IV SCH ×2 (01:10→09:01)
[2017-02-26] MEDS: oxyCODONE/ACETAMINOPHEN 5 MG/325 MG TAB PO PRN ×3 (03:26→12:41)
[2017-02-26] MEDS: INSULIN ASPART SUPPLEMENTAL SCALE SQ SCH ×2 (06:34→12:42)
[2017-02-26 07:29] LABS: AUTOMATED NEUTROPHIL # 1.9 TH/MM3 (1.8-7.7); BASOPHIL % 0.3 % (0.0-2.0); EOSINOPHIL % 0.2 % (0.0-4.0); HEMATOCRIT 31.7 % (35.0-46.0); LYMPH % 12.7 % (9.0-44.0); LYMPHOCYTE # 0.3 TH/MM3 (1.0-4.8); MEAN CELL VOLUME 102.2 FL (80.0-100.0); MEAN CORPUSCULAR HEMOGLOBIN 33.7 PG (27.0-34.0); MEAN CORPUSCULAR HGB CONC 32.9 % (32.0-36.0); MONO % 12.9 % (0.0-8.0); NEUT % 73.9 % (16.0-70.0); PLATELET COUNT 84 TH/MM3 (150-450); RED CELL DISTRIBUTION WIDTH 24.9 % (11.6-17.2); WHITE BLOOD COUNT 2.5 TH/MM3 (4.0-11.0)
[2017-02-26 07:35] LABS: HEMO FLAGS AUTO DIFF
[2017-02-26 07:42] LABS: POTASSIUM 3.4 MEQ/L (3.5-5.1)
[2017-02-26 07:46] LABS: BICARBONATE 30.8 MEQ/L (21.0-32.0); MAGNESIUM 1.2 MG/DL (1.5-2.5)
[2017-02-26 07:50] LABS: INDIRECT BILIRUBIN 0.7 MG/DL (0.0-0.8); TOTAL BILIRUBIN ADULT 1.1 MG/DL (0.2-1.0)
[2017-02-26 08:04] LABS: KERATOCYTES OCC (NORMAL); OVALOCYTES 1+ (NORMAL); PLATELET ESTIMATE SMEAR LOW (NORMAL); PLATELET MORPHOLOGY NORMAL (NORMAL); ROULEAUX PRESENT (NORMAL); SCAN/DIFF AUTO DIFF CONFIRMED
[2017-02-26 08:40] VITALS: BP 151/108; PULSE 110; RESP 15; TEMP 96.8; O2SAT 99
[2017-02-26] MEDS ORDERED: FOLI1TAB4 PO (08:52)
[2017-02-26] MEDS ORDERED: THIA100T PO (08:52)
[2017-02-26] MEDS ORDERED: LORA-373 PO (08:52)
[2017-02-26] MEDS ORDERED: MAGN400T2 PO (08:52)
--- NOTE | 2017-02-26 08:53 | HHI.DCPOC ---
Discharge Care Plan Diagnosis: (1) Alcohol abuse (2) DM (diabetes mellitus) (3) Pancytopenia (4) Hypomagnesemia (5) Hypokalemia (6) Symptomatic anemia (7) Alcoholic cirrhosis Goals to Promote Your Health * To prevent worsening of your condition and complications * To maintain your health at the optimal level Directions to Meet Your Goals Take your medications as prescribed Follow your dietary instruction Follow activity as directed Keep your appointments as scheduled Take your immunizations and boosters as scheduled If your symptoms worsen call your PCP, if no PCP go to Urgent Care Center or Emergency Room Smoking is Dangerous to Your Health. Avoid second hand smoke Call the 24-hour hour crisis hotline for domestic abuse at Vladimir Pratt DO Feb 26, 2017 08:53
[2017-02-26] MEDS ORDERED: POTA-163 PO (08:59)
[2017-02-26] MEDS: MAGNESIUM SULFATE 1 GM PREMIX 100 ML IV SCH ×4 (09:00→12:43)
[2017-02-26] MEDS ORDERED: POTASSIUM CHLORIDE 25 MEQ EFFERVESCENT TAB PO ONE (09:00)
[2017-02-26] MEDS: GABAPENTIN 300 MG CAP PO SCH ×2 (09:01→12:41)
[2017-02-26] MEDS: SODIUM CHLORIDE 0.9% FLUSH 10 ML FLUSH IV FLUSH SCH (09:01)
[2017-02-26] MEDS: FOLIC ACID 1 MG TAB PO SCH (09:01)
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
[2017-02-26 13:16] VITALS: BP 148/95; PULSE 90; RESP 15; TEMP 97; O2SAT 97
[2017-03-15] MEDS ORDERED: TRAZ100T4 PO ×2 (14:48→15:19)
[2017-03-15] MEDS ORDERED: MULT-11 PO (14:48)
[2017-03-15] MEDS ORDERED: BUSP30TA PO ×2 (14:48→15:19)
[2017-03-15] MEDS ORDERED: LOSA50TA PO ×2 (14:52→15:19)
[2017-03-15] MEDS ORDERED: PROBCAP15 PO (14:52)
[2017-03-15] MEDS ORDERED: NOVOLOGP2 SQ (15:18)
[2017-03-15] MEDS ORDERED: PROT40TA PO (15:18)
[2017-03-15] MEDS ORDERED: POTA-163 PO (15:18)
[2017-03-15] MEDS ORDERED: LEVEMIR SQ (15:18)
[2017-03-15] MEDS ORDERED: GLUCTES27 (15:19)
== END 2017-02-26 15:19 | disposition home or self-care (01) | DRG 809 ==
LOC: PHED 09:56 → PHEDA 12:44 → PH3A 15:59
PROVIDERS: ADMIT Hospitalist; ATTEND Hospitalist
PROC: 30233N1 Transfusion of Nonautologous Red Blood Cells into Peripheral Vein, Percutaneous Approach (ICD-10-PCS; principal; 2017-02-22)
DX: D61.818 Other pancytopenia (principal); K86.1 Other chronic pancreatitis; N17.9 Acute kidney failure, unspecified; F10.229 Alcohol dependence with intoxication, unspecified; K70.30 Alcoholic cirrhosis of liver without ascites; E11.40 Type 2 diabetes mellitus with diabetic neuropathy, unspecified; I95.9 Hypotension, unspecified; E83.42 Hypomagnesemia; E87.6 Hypokalemia; Z79.4 Long term (current) use of insulin; Z88.6 Allergy status to analgesic agent; Z91.018 Allergy to other foods; Z80.1 Family history of malignant neoplasm of trachea, bronchus and lung; Z83.3 Family history of diabetes mellitus; Z82.49 Family history of ischemic heart disease and other diseases of the circulatory system; S00.03XA Contusion of scalp, initial encounter; S00.10XA Contusion of unspecified eyelid and periocular area, initial encounter; W19.XXXA Unspecified fall, initial encounter; Z91.81 History of falling; Y93.9 Activity, unspecified; Y92.9 Unspecified place or not applicable; Y99.9 Unspecified external cause status; E86.0 Dehydration; F41.9 Anxiety disorder, unspecified; G89.29 Other chronic pain; G40.909 Epilepsy, unspecified, not intractable, without status epilepticus; R29.6 Repeated falls; Z87.410 Personal history of cervical dysplasia; Z59.0 Homelessness
CPT/HCPCS: 36430; 70450; 76937; 80048; 80053; 80074; 80076; 82607; 82746; 82948; 83010; 83540; 83550; 83615; 83690; 83735; 84100; 85007; 85014; 85018; 85025; 85027; 85060; 85610; 85652; 85730; 86140; 86703; 86850; 86900; 86901; 86920; 96361; 96365; 96375; J1815; J2060; J2405; J3411; J3475; J3480; J7030; J7050; P9016

== ENCOUNTER 2017-12-17 11:09 | Emergency (ER) | payer SELFPAY ==
[~2017-12-17] VITALS: Ht 170.2 cm; Wt 55.0 kg
[~2017-12-17 11:09] MED LIST changes: -BACI500O8 TOP; -BACT PO; +BUSP30TA PO; -FLUO40CA PO; -FOLI800T12 PO; -FURO20 PO; -GABA100C4 PO; +GABA600T PO; +GLUCTES27; +HYPERTENSION MED; -LACT20SO4 PO; +LEVEMIR SQ; +LOSA50TA PO; +MAGN400T2 PO; +MULT-11 PO; -MULT-65 PO; +NOVOLOGP2 SQ; +POTA-163 PO; -PROB1TAB; +PROBCAP15 PO; -PROP1TAB66 PO; +PROT40TA PO; +PROZ40CA PO; -THIA100T PO; -TRAZ100 PO; +TRAZ100T4 PO
[2017-12-17] MEDS ORDERED: TRAZ100T10 PO (11:21)
--- NOTE | 2017-12-17 11:26 | PD ---
HPI Chief Complaint: Diabetic Time Seen by Provider: 11:25 Travel History International Travel<30 days: No Contact w/Intl Traveler<30days: No Traveled to known affect area: No History of Present Illness HPI 47-year-old female who is a known diabetic was picked up by EMS after she called 911 since her blood sugar was reading 500. Patient had injected herself with insulin prior to their arrival. When they checked her blood sugar was in the 500s as well. Patient has been crying since she got here and says she wants her boyfriend. Is no family member boyfriend around her or in the waiting room at this point. Patient is complaining of intense body ache all over. She is afebrile and vital signs otherwise stable. Her speech is slurred and groggy. She denies doing any alcohol last night even though her breath smells like alcohol. She is well-known to this department in the emergency room at the [facility] and has been seen multiple times. Patient does have history of illicit drug abuse. [facility] Past Medical History Narrative Medical List of her past medical, surgical, social and family history is reviewed from the nursing note. Anemia: Yes Arthritis: Yes Asthma: No Autoimmune Disease: No Anxiety: Yes Depression: Yes Heart Rhythm Problems: No Cancer: No Cardiovascular Problems: No High Cholesterol: Yes Chemotherapy: No Chest Pain: No Congestive Heart Failure: No COPD: No Cerebrovascular Accident: No Diabetes: Yes Diminished Hearing: No Endocrine: No Gastrointestinal Disorders: Yes (Cirrhosis ) GERD: No Genitourinary: No Headaches: No Hiatal Hernia: No Hypertension: Yes Immune Disorder: No Implanted Vascular Access Dvce: Yes Kidney Stones: No Musculoskeletal: No Neurologic: Yes (NEUROPATHY) Psychiatric: Yes Reproductive: No Respiratory: No Immunizations Current: No Migraines: Yes Pancreatitis: Yes Radiation Therapy: No Renal Failure: No Seizures: Yes (a year and a half ago) Sickle Cell Disease: No Sleep Apnea: No Thyroid Disease: No Ulcer: No Menopausal: Yes : 1 Para: 0 Miscarriage: 1 : 0 Ovarian Cysts: Yes Past Surgical History Abdominal Surgery: No AICD: No Arteriovenous Shunt: No Body Medical Devices: Bilateral brest implants Cardiac Surgery: No Ear Surgery: No Endocrine Surgery: No Eye Surgery: No Genitourinary Surgery: No Gynecologic Surgery: No Insulin Pump: No Joint Replacement: No Neurologic Surgery: No Oral Surgery: No Pacemaker: No Thoracic Surgery: No Other Surgery: Yes (breast implants) Social History Alcohol Use: Yes (STATES CURRENT ALCOHOL WITHDRAWAL) Tobacco Use: No Substance Use: Yes Allergies-Medications (Allergen,Severity, Reaction): Coded Allergies: blueberry (Unverified Allergy, Severe, 12/17/17) aspirin (Unverified Allergy, Intermediate, 12/17/17) Comments List of her allergies reviewed from the nursing note. Reported Meds & Prescriptions Reported Meds & Active Scripts Active Naya Contour Next Blood Test Strips (Blood Glucose Test Strips) 1 Laura Laura 1 Strip .ROUTE DIRECTED Losartan (Losartan Potassium) 50 Mg Tab 50 Mg PO DAILY Buspirone (Buspirone HCl) 30 Mg Tab 30 Mg PO BID Protonix (Pantoprazole Sodium) 40 Mg Tab 40 Mg PO DAILY Levemir Inj (Insulin Detemir) 1,000 unit/ 10 ML Vial 10 Units SQ BID Do not mix with any other Insulin. Novolog Inj (Insulin Aspart) 1,000 Unit/10 Ml Vial 0 SQ DIRECTED Sliding Scale as directed. Magnesium Oxide 400 Mg Tab 400 Mg PO BID Reported Trazodone (Trazodone HCl) 100 Mg Tablet 200 Mg PO HS Trubiotics (Probiotic Product) 1 Cap Cap 1 Cap PO DAILY Alive [employer] (Multiple Vitamins W/ Minerals) 1 Tab Tab 100 Mg PO DAILY Prozac (Fluoxetine HCl) 40 Mg Cap 40 Mg PO DAILY Gabapentin 600 Mg Tab 600 Mg PO TID Narrative Medication List of her home medications reviewed from the nursing note. Review of Systems Except as stated in HPI: all other systems reviewed are Neg Physical Exam Narrative GENERAL: Awake, alert, moderate distress, slurred speech but answering questions appropriately SKIN: Focused skin assessment warm/dry. HEAD: Atraumatic. Normocephalic. EYES: Pupils equal and round. No scleral icterus. No injection or drainage. ENT: No nasal bleeding or discharge. Mucous membranes pink and moist. NECK: Trachea midline. No JVD. CARDIOVASCULAR: Regular rate and rhythm. No murmur appreciated. RESPIRATORY: No accessory muscle use. Clear to auscultation. Breath sounds equal bilaterally. GASTROINTESTINAL: Abdomen soft, non-tender, nondistended. Hepatic and splenic margins not palpable. MUSCULOSKELETAL: No obvious deformities. No clubbing. No cyanosis. No edema. NEUROLOGICAL: Awake and alert. No obvious cranial nerve deficits. Motor grossly within normal limits. Slurred speech. PSYCHIATRIC: Appropriate mood and affect; insight and judgment normal. Data Data Last Documented VS Vital Signs Date Time Temp Pulse Resp B/P (MAP) Pulse Ox O2 Delivery O2 Flow Rate FiO2 12/17/17 11:47 16 97 Room Air 12/17/17 11:30 97.7 90 128/90 (103) Orders Orders Complete Blood Count With Diff (12/17/17 11:29) Comprehensive Metabolic Panel (12/17/17 11:29) Beta Hydroxybutyrate (Acetone) (12/17/17 11:29) Sodium Chlor 0.9% 1000 Ml Inj (Ns 1000 M (12/17/17 11:29) Sodium Chloride 0.9% Flush (Ns Flush) (12/17/17 11:30) Alcohol (Ethanol) (12/17/17 11:29) Arterial Blood Gas (Abg) (12/17/17 ) Labs Laboratory Tests Test 12/17/17 11:30 12/17/17 11:45 White Blood Count 3.0 TH/MM3 Red Blood Count 3.29 MIL/MM3 Hemoglobin 11.1 GM/DL Hematocrit 33.5 % Mean Corpuscular Volume 102.0 FL Mean Corpuscular Hemoglobin 33.7 PG Mean Corpuscular Hemoglobin Concent 33.0 % Red Cell Distribution Width 15.7 % Platelet Count 98 TH/MM3 Mean Platelet Volume 7.4 FL Neutrophils (%) (Auto) 62.1 % Lymphocytes (%) (Auto) 29.1 % Monocytes (%) (Auto) 6.1 % Eosinophils (%) (Auto) 1.7 % Basophils (%) (Auto) 1.0 % Neutrophils # (Auto) 1.8 TH/MM3 Lymphocytes # (Auto) 0.9 TH/MM3 Monocytes # (Auto) 0.2 TH/MM3 Eosinophils # (Auto) 0.1 TH/MM3 Basophils # (Auto) 0.0 TH/MM3 CBC Comment AUTO DIFF Differential Comment AUTO DIFF CONFIRMED Platelet Estimate LOW Platelet Morphology Comment NORMAL Red Cell Morphology Comment NORMAL Blood Urea Nitrogen 5 MG/DL Creatinine 0.79 MG/DL Random Glucose 394 MG/DL Total Protein 6.9 GM/DL Albumin 4.0 GM/DL Calcium Level 8.5 MG/DL Alkaline Phosphatase 169 U/L Aspartate Amino Transf (AST/SGOT) 276 U/L Alanine Aminotransferase (ALT/SGPT) 209 U/L Total Bilirubin 0.4 MG/DL Sodium Level 136 MEQ/L Potassium Level 3.7 MEQ/L Chloride Level 98 MEQ/L Carbon Dioxide Level 29.6 MEQ/L Anion Gap 8 MEQ/L Estimat Glomerular Filtration Rate 78 ML/MIN Ethyl Alcohol Level 292 MG/DL B-Hydroxybutyrate 0.09 MMOL/L Blood Gas Puncture Site RT RADIAL Blood Gas Patient Temperature 98.6 Blood Gas HCO3 27 mmol/L Blood Gas Base Excess 4.0 mmol/L Blood Gas Oxygen Saturation 95 % Arterial Blood pH 7.51 Arterial Blood Partial Pressure CO2 34 mmHG Arterial Blood Partial Pressure O2 122 mmHG Arterial Blood Oxygen Content 14.5 Vol % Arterial Blood Carboxyhemoglobin 1.8 % Arterial Blood Methemoglobin 0.9 % Blood Gas Hemoglobin 10.7 G/DL Oxygen Delivery Device RA Blood Gas Inspired Oxygen 21 % MDM Medical Decision Making Medical Screen Exam Complete: Yes Emergency Medical Condition: Yes Medical Record Reviewed: Yes Differential Diagnosis DKA, dehydration, alcohol intoxication, drug abuse Narrative Course 12:11 PM ABG does not show any DKA. Patient has been a very difficult peripheral IV access. Besides the fact that she has refused being poked by the nurses anymore. She wants her boyfriend in the room. She has been constantly crying and wants her boyfriend in the room. I went and spoke with her and let her know that the emergency room is very busy currently with multiple critical patients and she needs to let the nurses do what I have ordered so that we can treat her appropriately. She continued to insist that she wants her boyfriend at which point I decided that it is pointless having any further discussion with this patient. She has become very unreasonable but is in full mental capacity in making these unreasonable demands. Hence she is also in a mental capacity to understand that I do not want my staff engage in unnecessary phone calls at this point for her. I gave her an option of letting us treat her and if she does not want us to do that then she will have to leave AGAINST MEDICAL ADVICE. Patient will be leaving at this point. It is unfortunate but it's her decision at this point. Given her normal pH patient is not in DKA. Procedures EKG Prior to Arrival: No Diagnosis Primary Impression: Hyperglycemia Disposition: 07 AGAINST MEDICAL ADVICE Condition: Serious Cass Shelton MD Dec 17, 2017 11:26
[2017-12-17] MEDS ORDERED: SODIUM CHLOR 0.9% 1000 ML INJ 1,000 ML IV ONE (11:29)
[2017-12-17 11:30] VITALS: BP 128/90; PULSE 90; RESP 18; TEMP 97.7; O2SAT 100
[2017-12-17] MEDS ORDERED: SODIUM CHLORIDE 0.9% FLUSH 10 ML FLUSH IVF PRN (11:30)
[2017-12-17 11:33] VITALS: RESP 16; O2SAT 96
[2017-12-17 11:45] LABS: AUTOMATED NEUTROPHIL # 1.8 TH/MM3 (1.8-7.7); EOSINOPHIL # 0.1 TH/MM3 (0-0.4); EOSINOPHIL % 1.7 % (0.0-4.0); HEMATOCRIT 33.5 % (35.0-46.0); HEMOGLOBIN 11.1 GM/DL (11.6-15.3); LYMPH % 29.1 % (9.0-44.0); LYMPHOCYTE # 0.9 TH/MM3 (1.0-4.8); MEAN CORPUSCULAR HEMOGLOBIN 33.7 PG (27.0-34.0); MEAN PLATELET VOLUME 7.4 FL (7.0-11.0); MONO % 6.1 % (0.0-8.0); MONOCYTE # 0.2 TH/MM3 (0-0.9); NEUT % 62.1 % (16.0-70.0); PLATELET COUNT 98 TH/MM3 (150-450); RED BLOOD COUNT 3.29 MIL/MM3 (4.00-5.30); RED CELL DISTRIBUTION WIDTH 15.7 % (11.6-17.2)
[2017-12-17 11:56] LABS: CHLORIDE 98 MEQ/L (98-107); SODIUM (NA) 136 MEQ/L (136-145)
[2017-12-17 12:00] LABS: CALCIUM 8.5 MG/DL (8.5-10.1); GLUCOSE,RANDOM 394 MG/DL (74-106)
[2017-12-17 12:01] LABS: BICARBONATE 29.6 MEQ/L (21.0-32.0); BLOOD UREA NITROGEN 5 MG/DL (7-18)
[2017-12-17 12:03] LABS: AST (GOT) 276 U/L (15-37)
[2017-12-17 12:04] LABS: ALT (GPT) 209 U/L (10-53); CREATININE 0.79 MG/DL (0.50-1.00); GLOMERULAR FILTRATION RATE 78 ML/MIN (>89)
[2017-12-17 12:05] LABS: TOTAL BILIRUBIN ADULT 0.4 MG/DL (0.2-1.0); TOTAL PROTEIN 6.9 GM/DL (6.4-8.2)
[2017-12-17 12:06] LABS: ALKALINE PHOSPHATASE 169 U/L (45-117)
== END 2017-12-17 12:15 | disposition left against medical advice (07) ==
LOC: PHED 11:09
DX: E11.65 Type 2 diabetes mellitus with hyperglycemia (principal); F10.239 Alcohol dependence with withdrawal, unspecified; F10.229 Alcohol dependence with intoxication, unspecified; F41.8 Other specified anxiety disorders; Y90.8 Blood alcohol level of 240 mg/100 ml or more; Z79.4 Long term (current) use of insulin; Z53.21 Procedure and treatment not carried out due to patient leaving prior to being seen by health care provider
CPT/HCPCS: 36600; 80053; 80307; 82010; 82805; 85025; 99283

== ENCOUNTER 2018-03-17 21:04 | Emergency (ER) | END 2018-03-18 01:40 | disposition home or self-care (01) | DX: K29.20 Alcoholic gastritis without bleeding (principal); F17.210 Nicotine dependence, cigarettes, uncomplicated; F12.90 Cannabis use, unspecified, uncomplicated; E11.9 Type 2 diabetes mellitus without complications; I10 Essential (primary) hypertension; K21.9 Gastro-esophageal reflux disease without esophagitis; F10.20 Alcohol dependence, uncomplicated; Z79.4 Long term (current) use of insulin | CPT/HCPCS: 80053; 83690; 85007; 85027; 85610; 85730; 96361; 96372; 96374; 96375; 99284; J2060; J2270; J2550; J7030 ==

== ENCOUNTER 2018-06-06 09:32 | Observation (INO) ==
[2018-06-06] MEDS ORDERED: Sod Chloride 0.9% Inj 1,000 ML IV.SIG ONE (09:47)
--- NOTE | 2018-06-06 09:53 | ED ---
HPI General Chief Complaint: Seizure Stated Complaint: Poss Seizure Time Seen by Provider: 06/06/18 09:47 Source: patient and EMS Mode of arrival: EMS Limitations: no limitations History of Present Illness HPI narrative: 47-year-old female patient with history of previous alcohol use, seizures, presents to the ER today because she had a seizure according to family , who called EMS. EMS states that she did bite her tongue but has since been cooperative and was initially disoriented but with normal blood sugars, patient now is awake and answering questions. She denies any injuries, admits that she had last had alcohol yesterday, has not drank anything or eat anything today. She thinks that her last seizure was about a year ago. She is not on anything for seizures. Related Data Home Medications Medication Instructions Recorded Confirmed buspirone 30 mg PO DAILY 06/06/18 06/06/18 fluoxetine [Prozac] 40 mg PO DAILY 06/06/18 06/06/18 gabapentin 300 mg PO TID 06/06/18 06/06/18 insulin aspart U-100 [Novolog 5 - 6 unit SUB-Q TID 06/06/18 06/06/18 U-100 Insulin aspart] insulin detemir U-100 [Levemir 10 unit SUB-Q DAILY 06/06/18 06/06/18 U-100 Insulin] losartan 50 mg PO DAILY 06/06/18 06/06/18 magnesium 200 mg PO DAILY 06/06/18 06/06/18 pantoprazole [Protonix] 20 mg PO DAILY 06/06/18 06/06/18 potassium chloride 1 tab PO DAILY 06/06/18 06/06/18 trazodone 300 mg PO HS 06/06/18 06/06/18 Allergies Allergy/AdvReac Type Severity Reaction Status Date / Time blueberry Allergy Severe Watery Eye Verified 06/06/18 10:04 aspirin Allergy Intermediate Vomiting Verified 06/06/18 10:04 Review of Systems Except as stated in HPI: all other systems reviewed are negative PMFSH History History Provided By: Patient Medical History Medical History Anxiety (Acute) Depression (Acute) ETOH abuse (Acute) Seizure (Acute) Surgical History Surgical History H/O breast augmentation (Acute) Social History Social History Substance History: Active Abuse Second Hand Smoke Exposure: Yes Smoking Status: Current every day smoker Tobacco Type: Cigarettes How Often Do You Have a Drink Containing Alcohol: 4 or more times a week Recent Travel in [facility] within the Last 8 Weeks: No Recent Out of Country Travel within the Last 8 Weeks: No Exam Narrative Exam Narrative: GENERAL: Well-developed middle-age female patient currently in mild distress. Awake and oriented 3. SKIN: Focused skin assessment warm/dry. HEAD: Atraumatic. Normocephalic. Notable for small amount ecchymosis at the right lower eyelid area. EYES: Pupils equal and round. No scleral icterus. No injection or drainage. ENT: No nasal bleeding or discharge. Mucous membranes pink and moist. Small abrasions to the sides of the tongue, no active bleeding. NECK: Trachea midline. No JVD. Supple. CARDIOVASCULAR: Regular rate and rhythm. No murmur appreciated. RESPIRATORY: No accessory muscle use. Clear to auscultation. Breath sounds equal bilaterally. GASTROINTESTINAL: Abdomen soft, non-tender, nondistended. Hepatic and splenic margins not palpable. MUSCULOSKELETAL: No obvious deformities. No clubbing. No cyanosis. No edema. NEUROLOGICAL: Awake and alert. No obvious cranial nerve deficits. Motor grossly within normal limits. Normal speech. PSYCHIATRIC: Appropriate mood and affect; insight and judgment normal. Course Initial Documented Vital Signs Temperature 98 F 06/06/18 09:40 Pulse Rate 120 H 06/06/18 09:40 Respiratory Rate 21 06/06/18 09:40 Blood Pressure 157/95 H 06/06/18 09:40 Pulse Oximetry 100 06/06/18 09:40 Last Documented Vital Signs Temperature 98 F 06/06/18 09:40 Pulse Rate 79 06/06/18 13:15 Respiratory Rate 18 06/06/18 13:15 Blood Pressure 121/76 06/06/18 13:15 Pulse Oximetry 98 06/06/18 13:15 Medical Decision Making [facility] Narrative Medical decision making narrative: Lab work shows low glucose and patient was given juice in the ER. Her lab work was fairly unremarkable otherwise. She appears tremulous in the ER and had been given 2 doses of Ativan 1 mg each without significant improvement and tremulousness. She admits that she has been cutting back on her alcohol use. At this point, CAT scan was negative as well and my plan would be to admit her for observation for alcohol withdrawal seizures. Case was discussed with Dr. Avilez for admission. Differential Diagnosis Differential Diagnosis: Alcohol withdrawal seizures versus electrolyte abnormalities versus epileptic seizures Lab Data Lab results reviewed: Yes I reviewed the patient's lab results. Result diagrams: 06/06/18 09:50 06/06/18 09:50 Lab Results 06/06/18 06/06/18 06/06/18 Range/Units 09:50 09:50 12:10 WBC 3.1 L (4.0-11.0) th/mm3 RBC 2.96 L (4.00-5.30) mil/mm3 Hgb 10.9 L (11.6-15.3) gm/dL Hct 32.9 L (35.0-46.0) % MCV 111.1 H (80.0-100.0) fL MCH 36.9 H (27.0-34.0) pg MCHC 33.2 (32.0-36.0) % RDW 18.6 H (11.6-17.2) % Plt Count 80 L (150-450) th/mm3 MPV 7.5 (7.0-11.0) fL Prelim Diff (Auto) Slide review pending Neut % (Auto) 66.5 (16.0-70.0) % Lymph % (Auto) 29.0 (9.0-44.0) % [place] % (Auto) 4.2 (0.0-8.0) % Eos % (Auto) 0.1 (0.0-4.0) % Baso % (Auto) 0.2 (0.0-2.0) % Neut # (Auto) 2.1 (1.8-7.7) th/mm3 Lymph # (Auto) 0.9 L (1.0-4.8) th/mm3 [place] # (Auto) 0.1 (0.0-0.9) th/mm3 Eos # (Auto) 0.0 (0.0-0.4) th/mm3 Baso # (Auto) 0.0 (0.0-0.2) th/mm3 WBC Differential . Diff Scan Auto diff confirmed Differential Comment . Sodium 139 (136-145) meq/L Potassium 3.6 (3.5-5.1) meq/L Chloride 99 (98-107) meq/L Carbon Dioxide 21.3 (21.0-32.0) meq/L Anion Gap 19 H (5-15) meq/L BUN 12 (7-18) mg/dL Creatinine 1.12 H (0.50-1.00) mg/dL Estimated GFR 52 L (>89) mL/min Random Glucose 85 (74-106) mg/dL Calcium 8.5 (8.5-10.1) mg/dL Magnesium 1.1 L (1.5-2.5) mg/dL Urine Color (Yellw/Straw) Urine Clarity (Clear) Urine pH (5.0-8.5) Ur Specific [place] (1.002-1.035) Urine Protein (Neg-Trace) mg/dL Urine Glucose (UA) (Negative) mg/dL Urine Ketones (Negative) mg/dL Urine Occult Blood (Negative) Urine Nitrate (Negative) Urine Bilirubin (Negative) Urine Urobilinogen (Less than 2) mg/dL Ur Leukocyte Esterase (Negative) Urine RBC (0-3) /hpf Urine WBC (0-5) /hpf Hyaline Casts (0-3) /lpf Granular Casts (None) /lpf Urine Mucus (Occasional) /lpf Urine Opiates Screen Neg (Neg) Ur Barbiturates Screen Neg (Neg) Ur Amphetamines Screen Pos H (Neg) U Benzodiazepines Scrn Neg (Neg) Urine Cocaine Screen Neg (Neg) U Cannabinoids Screen Neg (Neg) Serum Alcohol Less than 3 (0-5) mg/dL 06/06/18 Range/Units 12:10 WBC (4.0-11.0) th/mm3 RBC (4.00-5.30) mil/mm3 Hgb (11.6-15.3) gm/dL Hct (35.0-46.0) % MCV (80.0-100.0) fL MCH (27.0-34.0) pg MCHC (32.0-36.0) % RDW (11.6-17.2) % Plt Count (150-450) th/mm3 MPV (7.0-11.0) fL Prelim Diff (Auto) Neut % (Auto) (16.0-70.0) % Lymph % (Auto) (9.0-44.0) % [place] % (Auto) (0.0-8.0) % Eos % (Auto) (0.0-4.0) % Baso % (Auto) (0.0-2.0) % Neut # (Auto) (1.8-7.7) th/mm3 Lymph # (Auto) (1.0-4.8) th/mm3 [place] # (Auto) (0.0-0.9) th/mm3 Eos # (Auto) (0.0-0.4) th/mm3 Baso # (Auto) (0.0-0.2) th/mm3 WBC Differential Diff Scan Differential Comment Sodium (136-145) meq/L Potassium (3.5-5.1) meq/L Chloride (98-107) meq/L Carbon Dioxide (21.0-32.0) meq/L Anion Gap (5-15) meq/L BUN (7-18) mg/dL Creatinine (0.50-1.00) mg/dL Estimated GFR (>89) mL/min Random Glucose (74-106) mg/dL Calcium (8.5-10.1) mg/dL Magnesium (1.5-2.5) mg/dL Urine Color Yellow (Yellw/Straw) Urine Clarity Clear (Clear) Urine pH 6.0 (5.0-8.5) Ur Specific [place] 1.012 (1.002-1.035) Urine Protein Negative (Neg-Trace) mg/dL Urine Glucose (UA) Negative (Negative) mg/dL Urine Ketones Negative (Negative) mg/dL Urine Occult Blood Negative (Negative) Urine Nitrate Negative (Negative) Urine Bilirubin Negative (Negative) Urine Urobilinogen Less than 2 (Less than 2) mg/dL Ur Leukocyte Esterase Negative (Negative) Urine RBC Less than 1 (0-3) /hpf Urine WBC 1 (0-5) /hpf Hyaline Casts 4 (0-3) /lpf Granular Casts 1 (None) /lpf Urine Mucus Few H (Occasional) /lpf Urine Opiates Screen (Neg) Ur Barbiturates Screen (Neg) Ur Amphetamines Screen (Neg) U Benzodiazepines Scrn (Neg) Urine Cocaine Screen (Neg) U Cannabinoids Screen (Neg) Serum Alcohol (0-5) mg/dL Imaging Data Attestation: I personally reviewed and interpreted this imaging study as follows : Radiologist's impression: Head CT 06/06/18 09:53 CONCLUSION: 1. No acute intracranial abnormalities. . Discharge Plan Discharge Disposition Patient Disposition: 30 Still Patient Discharge Condition Condition: Stable Discharge Details Anticipated Discharge Date: 06/06/18 Diagnosis: Alcohol withdrawal seizure Physicians Team ED Provider: Geoff Aj Primary Care Provider: Brent Goodman Rxs /Orders / Referrals /Forms Prescriptions: No Action losartan 50 mg Tablet 50 mg PO DAILY RF: 0 fluoxetine [Prozac] 40 mg Capsule 40 mg PO DAILY RF: 0 pantoprazole [Protonix] 20 mg Tablet,Delayed Release (Dr/Ec) 20 mg PO DAILY RF: 0 insulin aspart U-100 [Novolog U-100 Insulin aspart] 100 unit/mL Solution 5 - 6 unit SUB-Q TID RF: 0 buspirone 30 mg Tablet 30 mg PO DAILY RF: 0 trazodone 300 mg Tablet 300 mg PO HS RF: 0 gabapentin 300 mg Capsule 300 mg PO TID RF: 0 magnesium 200 mg Tablet 200 mg PO DAILY RF: 0 insulin detemir U-100 [Levemir U-100 Insulin] 100 unit/mL Solution 10 unit SUB-Q DAILY RF: 0 potassium chloride 1 tab PO DAILY RF: 0 Discharge Interventions Interventions: Vital Signs Last Done: 06/06/18 13:15 Status ED Status: With Doctor
--- NOTE | 2018-06-06 10:47 | CT ---
EXAM DATE: 06/06/2018 10:36 AM EDT AGE/SEX: 47 years / Female INDICATIONS: Patient had seizure. CLINICAL DATA: This is the patient's initial encounter. Patient reports that signs and symptoms have been present for 1 day and indicates a pain score of 0/10. MEDICAL/SURGICAL HISTORY: Seizures. ETOH abuse None. RADIATION DOSE: 35.07 CTDI (mGy) COMPARISON: [facility], CT BRAIN W/O CONTRAST, 02/22/2017. . TECHNIQUE: CT of the head without contrast. Using automated exposure control and adjustment of the mA and/or kV according to patient size, radiation dose was kept as low as reasonably achievable to ob tain optimal diagnostic quality images. DICOM format image data is available electronically for revi ew and comparison. FINDINGS: Cerebrum: The ventricles are normal for age. No evidence of midline shift, mass lesion, hemorrhage or acute infarction. No extraaxial fluid collections are seen. Posterior Fossa: The cerebellum and brainstem are intact. The 4th ventricle is midline. The cerebe llopontine angle is unremarkable. Extracranial: The visualized portion of the orbits is intact. Skull: The calvaria is intact. No evidence of skull fracture. CONCLUSION: 1. No acute intracranial abnormalities. . Electronically signed by: Jeffrey Hammond MD 06/06/2018 10:46 AM EDT
[2018-06-06 10:49] LABS: Baso % (Auto) 0.2 % (0.0-2.0); Eos % (Auto) 0.1 % (0.0-4.0); Hematocrit 32.9 % (35.0-46.0); Hemoglobin 10.9 gm/dL (11.6-15.3); Lymph # (Auto) 0.9 th/mm3 (1.0-4.8); Mean Corpuscular HGB Conc 33.2 % (32.0-36.0); Mean Corpuscular Hemoglobin 36.9 pg (27.0-34.0); Mean Corpuscular Volume 111.1 fL (80.0-100.0); Mean Platelet Volume 7.5 fL (7.0-11.0); Mono # (Auto) 0.1 th/mm3 (0.0-0.9); Mono % (Auto) 4.2 % (0.0-8.0); Neut # (Auto) 2.1 th/mm3 (1.8-7.7); Neut % (Auto) 66.5 % (16.0-70.0); Platelet Count 80 th/mm3 (150-450); Red Blood Count 2.96 mil/mm3 (4.00-5.30); Red Cell Distribution Width 18.6 % (11.6-17.2); White Blood Count 3.1 th/mm3 (4.0-11.0)
[2018-06-06 11:11] LABS: Anion Gap 19 meq/L (5-15); Blood Urea Nitrogen 12 mg/dL (7-18); Calcium 8.5 mg/dL (8.5-10.1); Carbon Dioxide 21.3 meq/L (21.0-32.0); Chloride 99 meq/L (98-107); Glomerular Filtration Rate 52 mL/min (>89); Glucose,Random 85 mg/dL (74-106); Magnesium 1.1 mg/dL (1.5-2.5); Potassium 3.6 meq/L (3.5-5.1); Sodium 139 meq/L (136-145)
[2018-06-06] MEDS ORDERED: Mag Sulf/Water 40 gm/1000 ml 40 GM/1,000 ML BAG IV.CONT ONE (11:30)
[2018-06-06 13:04] LABS: Bilirubin,Urine Negative (Negative); Clarity,Urine Clear (Clear); Color,Urine Yellow (Yellw/Straw); Glucose,Urine (UA) Negative (Negative); Hyaline Casts,Urine 4 /lpf (0-3); Leukocyte Esterase,Urine Negative (Negative); Mucus,Urine Few /lpf (Occasional); Nitrite,Urine Negative (Negative); Specific Gravity,Urine 1.012 (1.002-1.035)
[2018-06-06 13:45] LABS: Barbiturate Screen,Urine Neg (Neg)
[2018-06-06 13:56] LABS: Amphetamine Screen,Urine Pos (Neg); Cannabinoid Screen,Urine Neg (Neg); Cocaine Screen,Urine Neg (Neg)
[2018-06-06 13:58] LABS: Opiate Screen,Urine Neg (Neg)
[2018-06-06] MEDS ORDERED: Bisacodyl 10 MG Supp RECTAL PRN (15:12)
[2018-06-06] MEDS ORDERED: Acetaminophen 325 MG Tablet PO PRN (15:12)
[2018-06-06] MEDS ORDERED: Haloperidol Inj 5 MG/ML Ampul IV.PUSH PRN (15:14)
[2018-06-06] MEDS ORDERED: LORazepam 1 MG Tablet PO PRN (15:14)
[2018-06-06] MEDS ORDERED: Dextrose 50% in Water 50 ML Vial IV.PUSH PRN (15:17)
--- NOTE | 2018-06-06 15:21 | P.HPIM ---
History of Present Illness Primary Care Physician: Brent Goodman MD Chief Complaint: seizures History of Present Illness: This is a 47-year-old female with history of alcohol abuse, seizures, chronic pancreatitis, diabetes mellitus with neuropathy, liver cirrhosis presenting with seizures according to the family. Per EMS was called after the patient's episode, she was found to have tongue biting but has been cooperative after during an episode of disorientation after the seizure episode. Per patient, this morning she has been dizzy, lightheaded and then she passed out for unknown period of time and when she woke up, she bit her tongue and was very disoriented. There is no note of incontinence. Blood glucose was normal. Upon ED encounter, the patient is awake and answering questions. She also had seizures about a year ago from alcohol withdrawal. She admits to drinking alcohol every day, about 200 cc of vodka daily. Her last drink was 2 days ago. Presently, she denies any fever, chills, neck pain, nausea or vomiting. Her only complaint is that she is still mildly confused, disoriented and tailbone pain. Family history prominent for throat and lung cancer in her dad. Dad also diabetes mellitus and heart disease. Mother had atrial fibrillation She smokes half a pack a day. Review of Systems All other pertinent systems were reviewed and are negative. [facility] - History History Provided By: Patient - Medical History Medical History: Medical History (Last Reviewed 06/06/18 @ 15:10 by Evan Avilez MD) Anxiety Depression ETOH abuse Seizure - Surgical History Surgical History: Surgical History (Last Reviewed 06/06/18 @ 15:10 by Evan Avilez MD) H/O breast augmentation - Tobacco History Second Hand Smoke Exposure: Yes Tobacco Use In Past 30 Days: Yes Smoking Status: Current every day smoker Tobacco Type: Cigarettes - Alcohol History How Often Do You Have a Drink Containing Alcohol: 4 or more times a week - Substance Use History Substance History: Active Abuse - Substance Use Type Marijuana Status: Active Reason for Use: Calm Down - Travel History Recent Travel in the [place] Within the Last 8 Weeks: No Recent Travel Out of the Country Within the Last 8 Weeks: No - Immunization History Tetanus Immunization: Unsure Hx Influenza Vaccine This Season: No Medications and Allergies Active Medications: Active Medications Magnesium Sulfate (Magnesium Sulfate/Water 40 Gm/1000 Ml Premix) 40 gm in 1, 000 mls @ 25 mls/hr IV.CONT ONCE ONE Stop: 06/08/18 03:29 Last Admin: 06/06/18 14:50 Dose: 1 gm/hr, 25 mls/hr Sodium Chloride (Ns Flush) 2 ml IV.FLUSH PRN PRN PRN Reason: FLUSH AFTER USING IV ACCESS Last Admin: 06/06/18 10:02 Dose: 2 ml Allergies Allergy/AdvReac Type Severity Reaction Status Date / Time blueberry Allergy Severe Watery Eye Verified 06/06/18 10:04 aspirin Allergy Intermediate Vomiting Verified 06/06/18 10:04 Home Medications Medication Instructions Recorded Confirmed Type buspirone 30 mg PO DAILY 06/06/18 06/06/18 History fluoxetine [Prozac] 40 mg PO DAILY 06/06/18 06/06/18 History gabapentin 300 mg PO TID 06/06/18 06/06/18 History insulin aspart U-100 [Novolog 5 - 6 unit SUB-Q TID 06/06/18 06/06/18 History U-100 Insulin aspart] insulin detemir U-100 [Levemir 10 unit SUB-Q DAILY 06/06/18 06/06/18 History U-100 Insulin] losartan 50 mg PO DAILY 06/06/18 06/06/18 History magnesium 200 mg PO DAILY 06/06/18 06/06/18 History pantoprazole [Protonix] 20 mg PO DAILY 06/06/18 06/06/18 History potassium chloride 1 tab PO DAILY 06/06/18 06/06/18 History trazodone 300 mg PO HS 06/06/18 06/06/18 History Exam Vital signs: Vital Signs 06/06/18 09:40 06/06/18 09:47 06/06/18 10:12 Temperature 98 F Pulse Rate 120 H 120 H Respiratory Rate 21 Blood Pressure 157/95 H 171/98 H Pulse Oximetry 100 100 100 06/06/18 11:00 06/06/18 12:00 06/06/18 13:00 Temperature Pulse Rate 96 H 110 H 92 H Respiratory Rate 17 18 16 Blood Pressure 171/96 H 173/100 H 193/112 H Pulse Oximetry 100 98 97 06/06/18 13:15 Temperature Pulse Rate 79 Respiratory Rate 18 Blood Pressure 121/76 Pulse Oximetry 98 Intake & Output 06/05/18 06/06/1818 18:59 06:59 18:59 Intake Total 1000 / 1000 Balance 1000 / 1000 Intake: IV 1000 / 1000 NS Inj 1,000 ML @ Wide Open IV. 1000 / 1000 SIG BOLUS ONE Rx#:[id number] Narrative: Not in distress, well-nourished, looks stated age, fidgety, anxious. PERRL, pink conjunctiva without injection, anicteric Nose without bleeding, airway patent, oropharynx clear Supple neck, no masses or thyromegaly, trachea midline Tachycardic, regular rhythm, no murmurs gallops or rubs appreciated. Clear to auscultation and symmetric bilaterally, normal respiratory effort. Normal bowel sounds, soft, non-tender, nondistended, no guarding. Extremities without clubbing, cyanosis, or edema. No rash of generalized distribution. Skin is warm and dry. AAO x3, no cranial nerve deficits, moves all 4 extremities, fidgety, no asterixis, mild tremors. Results - Labs CBC & Chem 7: 06/06/18 09:50 06/06/18 09:50 Labs: Short CBC 06/06/18 Range/Units 09:50 WBC 3.1 L (4.0-11.0) th/mm3 Hgb 10.9 L (11.6-15.3) gm/dL Hct 32.9 L (35.0-46.0) % Plt Count 80 L (150-450) th/mm3 BMP 06/06/18 09:50 Sodium 139 Potassium 3.6 Chloride 99 Carbon Dioxide 21.3 BUN 12 Creatinine 1.12 H Calcium 8.5 Urine 06/06/18 Range/Units 12:10 Urine Color Yellow (Yellw/Straw) Urine Clarity Clear (Clear) Urine pH 6.0 (5.0-8.5) Ur Specific [place] 1.012 (1.002-1.035) Urine Protein Negative (Neg-Trace) mg/dL Urine Glucose (UA) Negative (Negative) mg/dL - Imaging Impressions Head CT 06/06/18 09:53 CONCLUSION: 1. No acute intracranial abnormalities. . Caprini VTE Risk Assessment Caprini VTE Risk Assessment: Moderate/High Risk (score >= 2) Caprini Risk Assessment Model: Point Value = 1 Point Value = 2 Point Value = 3 Point Value = 5 Age 41-60 Minor surgery BMI > 25 kg/m2 Swollen legs Varicose veins or History of unexplained or recurrent spontaneous Oral contraceptives or hormone replacement Sepsis (< 1 month) Serious lung disease, including pneumonia (< 1 month) Abnormal pulmonary function Acute myocardial infarction Congestive heart failure (< 1 month) History of inflammatory bowel disease Medical patient at bed rest Age 61-74 Arthroscopic surgery Major open surgery (> 45 min) Laparoscopic surgery (> 45 min) Malignancy Confined to bed (> 72 hours) Immobilizing plaster cast Central venous access Age >= 75 History of VTE Family history of VTE Factor V Leiden Prothrombin [id number] Lupus anticoagulant Anticardiolipin antibodies Elevated serum homocysteine Heparin-induced thrombocytopenia Other congenital or acquired thrombophilia Stroke (< 1 month) Elective arthroplasty Hip, pelvis, or leg fracture Acute spinal cord injury (< 1 month) Prophylaxis Regimen: Total Risk Factor Score Risk Level Prophylaxis Regimen 0-1 Low Early ambulation 2 Moderate Order ONE of the following: *Sequential Compression Device (SCD) *Heparin 5000 units SQ BID 3-4 Higher Order ONE of the following medications: *Heparin 5000 units SQ TID *Enoxaparin/Lovenox 40 mg SQ daily (WT < 150 kg, CrCl > 30 mL/min) *Enoxaparin/Lovenox 30 mg SQ daily (WT < 150 kg, CrCl > 10-29 mL/min) *Enoxaparin/Lovenox 30 mg SQ BID (WT < 150 kg, CrCl > 30 mL/min) AND/OR *Sequential Compression Device (SCD) 5 or more Highest Order ONE of the following medications: *Heparin 5000 units SQ TID (Preferred with Epidurals) *Enoxaparin/Lovenox 40 mg SQ daily (WT < 150 kg, CrCl > 30 mL/min) *Enoxaparin/Lovenox 30 mg SQ daily (WT < 150 kg, CrCl > 10-29 mL/min) *Enoxaparin/Lovenox 30 mg SQ BID (WT < 150 kg, CrCl > 30 mL/min) AND *Sequential Compression Device (SCD) Assessment and Plan - Plan This is a 47-year-old female with history of alcohol abuse, chronic pancreatitis , liver cirrhosis, diabetes mellitus presenting with seizures Seizures likely secondary to alcohol withdrawal-start CIWA protocol, supportive management, seizure precautions. Ativan as needed, check EEG. Alcohol abuse-counseled, start folic acid, multivitamins, thiamine Diabetes mellitus with neuropathy-restart Levemir with sliding scale insulin and gabapentin. Leukopenia, macrocytic anemia-likely secondary to alcohol abuse, check iron panel Mild dehydration-continue IVF Hypertension-restart losartan, vasotec as needed Hypomagnesemia-replace with 2 g of magnesium, recheck tomorrow, recheck home magnesium Depression - restart prozac, buspirone Lovenox for DVT prophylaxis Discussed with patient's mother.
[2018-06-06] MEDS ORDERED: Magnesium Sulfate Inj 2 GM in Sodium Chlor 0.9% Inj 96 ML IV.SIG ONE (16:00)
[2018-06-06 16:04] LABS: % Iron Saturation 42.9 % (20-50)
[2018-06-06] MEDS ORDERED: Insulin NovoLIN Regular Correctional Sugar Inj SQ SCH (17:00)
[2018-06-06] MEDS: Gabapentin 300 MG Capsule PO SCH (18:40)
[2018-06-06] MEDS: Sod Chloride 0.9% Inj 1,000 ML IV.CONT SCH (18:40)
[2018-06-06] MEDS: Insulin NovoLOG Aspart Correctional Sugar Inj SQ SCH ×2 (18:41→20:38)
[2018-06-06] MEDS: Senna/Docusate Sodium 8.6/50 MG Tablet PO SCH (20:20)
[2018-06-06] MEDS ORDERED: traZODone 100 MG Tablet PO SCH (21:00)
[2018-06-07] MEDS: Sod Chloride 0.9% Inj 1,000 ML IV.CONT SCH ×2 (05:06→12:58)
[2018-06-07 06:46] LABS: Baso % (Auto) 0.3 % (0.0-2.0); Eos % (Auto) 0.2 % (0.0-4.0); Hematocrit 29.4 % (35.0-46.0); Lymph % (Auto) 42.6 % (9.0-44.0); Mean Corpuscular HGB Conc 33.9 % (32.0-36.0); Mean Corpuscular Hemoglobin 37.5 pg (27.0-34.0); Mean Corpuscular Volume 110.4 fL (80.0-100.0); Mono # (Auto) 0.2 th/mm3 (0.0-0.9); Mono % (Auto) 6.5 % (0.0-8.0); Neut # (Auto) 1.2 th/mm3 (1.8-7.7); Neut % (Auto) 50.4 % (16.0-70.0); Platelet Count 49 th/mm3 (150-450); Red Blood Count 2.67 mil/mm3 (4.00-5.30); White Blood Count 2.4 th/mm3 (4.0-11.0)
[2018-06-07 07:21] LABS: Alanine Aminotransferase 99 U/L (10-53); Albumin 4.1 g/dL (3.4-5.0); Alkaline Phosphatase 125 U/L (45-117); Anion Gap 9 meq/L (5-15); Aspartate Aminotransferase 151 U/L (15-37); Blood Urea Nitrogen 6 mg/dL (7-18); Calcium 7.7 mg/dL (8.5-10.1); Carbon Dioxide 29.3 meq/L (21.0-32.0); Chloride 101 meq/L (98-107); Glomerular Filtration Rate 82 mL/min (>89); Glucose,Random 126 mg/dL (74-106); Magnesium 2.5 mg/dL (1.5-2.5); Potassium 3.1 meq/L (3.5-5.1); Sodium 139 meq/L (136-145)
[2018-06-07 08:00] LABS: Platelet Morphology Normal (Normal); Tear Drop Cells 1+
[2018-06-07] MEDS ORDERED: Magnesium Oxide 400 MG Tablet PO SCH (09:00)
[2018-06-07] MEDS ORDERED: Enoxaparin Inj 40 MG/0.4 ML Syringe SQ SCH (09:00)
[2018-06-07] MEDS ORDERED: Insulin Detemir Inj 1,000 UNIT/10 ML Vial SQ SCH (09:00)
[2018-06-07] MEDS ORDERED: Folic Acid 1 MG Tablet PO SCH (09:00)
[2018-06-07] MEDS ORDERED: Pantoprazole Sodium 20 MG DR Tablet PO SCH (09:00)
[2018-06-07] MEDS ORDERED: Multivitamin w/Vit C Drops 50 ML Bottle PO SCH (09:00)
[2018-06-07] MEDS ORDERED: FLUoxetine 20 MG Capsule PO SCH (09:00)
[2018-06-07] MEDS: Senna/Docusate Sodium 8.6/50 MG Tablet PO SCH (09:28)
[2018-06-07] MEDS: Gabapentin 300 MG Capsule PO SCH ×2 (09:29→12:54)
[2018-06-07] MEDS: Insulin NovoLOG Aspart Correctional Sugar Inj SQ SCH ×2 (09:33→12:57)
[2018-06-07] MEDS ORDERED: Potassium Chloride 25 MEQ Effervescent Tablet PO ONE (13:00)
--- NOTE | 2018-06-07 16:07 | P.PNIM ---
Subjective Interval history: No overnight events, no further seizure episodes. Denies any headache. Less anxious today. Physical Exam Vital signs: Vital Signs 06/06/18 16:05 06/06/18 16:14 06/06/18 16:59 Temperature Pulse Rate 95 H 108 H 115 H Respiratory Rate 18 Blood Pressure 182/97 H 180/100 H 168/102 H Pulse Oximetry 96 06/06/18 17:48 06/06/18 20:00 06/07/18 00:00 Temperature 99.2 F 98.2 F 98.4 F Pulse Rate 107 H 122 H 116 H Respiratory Rate 18 17 16 Blood Pressure 163/98 H 134/79 136/87 Pulse Oximetry 98 97 99 06/07/18 04:00 06/07/18 05:04 06/07/18 06:12 Temperature 98.5 F Pulse Rate 111 H 100 H Respiratory Rate 16 Blood Pressure 172/99 H 150/98 H Pulse Oximetry 100 06/07/18 07:01 06/07/18 07:53 06/07/18 10:49 Temperature 98.2 F Pulse Rate 117 H 101 H 109 H Respiratory Rate 18 Blood Pressure 160/95 H Pulse Oximetry 100 06/07/18 12:00 06/07/18 15:20 Temperature 98.4 F Pulse Rate 103 H Respiratory Rate 20 Blood Pressure 181/99 H 156/97 H Pulse Oximetry 100 Intake & Output 06/06/18 06/07/18 06/07/18 18:59 06:59 18:59 Intake Total 1000 / 1000 1100 / 1100 Balance 1000 / 1000 1100 / 1100 Weight 51.858 kg Intake: IV 1000 / 1000 1100 / 1100 Magnesium Sulfate/Water 40 gm/ 0 / 0 1000 ml Premix 40 gm In 1,000 ml @ 1 GM/HR 25 mls/hr IV.CONT ONCE ONE Rx#:[id number] NS Inj 1,000 ML @ 100 mls/hr IV 1000 / 1000 .CONT .Q10H RADHA Rx#:[id number] Magnesium Sulfate Inj 2 GM In 100 / 100 NS Inj 96 ML @ 50 mls/hr IV.SIG ONCE ONE Rx#:[id number] NS Inj 1,000 ML @ Wide Open IV. 1000 / 1000 SIG BOLUS ONE Rx#:[id number] Other: Date of Last Bowel Movement 06/06/18 06/06/18 Weight On Admission 51.858 kg Narrative: Not in distress, well-nourished, Tachycardic, regular rhythm, no murmurs gallops or rubs appreciated. Clear to auscultation and symmetric bilaterally, normal respiratory effort. Normal bowel sounds, soft, non-tender, nondistended, no guarding. Extremities without clubbing, cyanosis, or edema. No rash of generalized distribution. Skin is warm and dry. AAO x3, no cranial nerve deficits, moves all 4 extremities, fidgety, no asterixis, no tremors. Results - Labs CBC & Chem 7: 06/07/18 05:58 06/07/18 05:58 Laboratory Results - last 24 hr 06/06/18 06/06/18 06/06/18 09:50 18:38 20:26 WBC RBC Hgb Hct MCV MCH MCHC RDW Plt Count MPV Prelim Diff (Auto) Neut % (Auto) Lymph % (Auto) [place] % (Auto) Eos % (Auto) Baso % (Auto) Neut # (Auto) Lymph # (Auto) [place] # (Auto) Eos # (Auto) Baso # (Auto) WBC Differential Diff Scan Differential Comment Platelet Estimate Platelet Morphology Tear Drop Cells Sodium Potassium Chloride Carbon Dioxide Anion Gap BUN Creatinine Estimated GFR POC Glucose 79 173 H Random Glucose Calcium Magnesium Iron 170 TIBC 396 % Saturation 42.9 Total Bilirubin AST ALT Alkaline Phosphatase Total Protein Albumin 06/07/18 06/07/18 06/07/18 05:05 05:58 05:58 WBC 2.4 L RBC 2.67 L Hgb 10.0 L Hct 29.4 L MCV 110.4 H MCH 37.5 H MCHC 33.9 RDW 18.0 H Plt Count 49 L D MPV 7.0 Prelim Diff (Auto) Slide review pending Neut % (Auto) 50.4 Lymph % (Auto) 42.6 [place] % (Auto) 6.5 Eos % (Auto) 0.2 Baso % (Auto) 0.3 Neut # (Auto) 1.2 L Lymph # (Auto) 1.0 [place] # (Auto) 0.2 Eos # (Auto) 0.0 Baso # (Auto) 0.0 WBC Differential . Diff Scan Auto diff confirmed Differential Comment . Platelet Estimate Low L Platelet Morphology Normal Tear Drop Cells 1+ H Sodium 139 Potassium 3.1 L Chloride 101 Carbon Dioxide 29.3 Anion Gap 9 BUN 6 L Creatinine 0.76 Estimated GFR 82 L POC Glucose 130 H Random Glucose 126 H Calcium 7.7 L D Magnesium 2.5 D Iron TIBC % Saturation Total Bilirubin 1.1 H AST 151 H ALT 99 H Alkaline Phosphatase 125 H Total Protein 7.0 Albumin 4.1 06/07/18 06/07/18 08:47 12:36 WBC RBC Hgb Hct MCV MCH MCHC RDW Plt Count MPV Prelim Diff (Auto) Neut % (Auto) Lymph % (Auto) [place] % (Auto) Eos % (Auto) Baso % (Auto) Neut # (Auto) Lymph # (Auto) [place] # (Auto) Eos # (Auto) Baso # (Auto) WBC Differential Diff Scan Differential Comment Platelet Estimate Platelet Morphology Tear Drop Cells Sodium Potassium Chloride Carbon Dioxide Anion Gap BUN Creatinine Estimated GFR POC Glucose 137 H 335 H Random Glucose Calcium Magnesium Iron TIBC % Saturation Total Bilirubin AST ALT Alkaline Phosphatase Total Protein Albumin Assessment and Plan - Plan This is a 47-year-old female with history of alcohol abuse, chronic pancreatitis , liver cirrhosis, diabetes mellitus presenting with seizures Seizures likely secondary to alcohol withdrawal-appears to have finished withdrawal, less anxious. May discharge today, follow-up EEG results as outpatient. Alcohol abuse-counseled, cont folic acid, multivitamins, thiamine Diabetes mellitus with neuropathy-cont Levemir with sliding scale insulin and gabapentin. Leukopenia, macrocytic anemia-likely secondary to alcohol abuse, iron panel unremarkable. Mild dehydration-resolved, stop IVF. Hypertension-restart losartan, vasotec as needed Hypomagnesemia-resolved after replacement Complaining of back pain-start oxycodone for pain. Hypokalemia-replace Depression - rcont prozac, buspirone Lovenox for DVT prophylaxis Discharge today Rx: None Follow-up with primary care physician.
--- NOTE | 2018-06-07 16:57 | MG ---
cc: Cricket Nguyen MD CLINICAL HISTORY: Chest and lung hurt, unable to do hyperventilation. Seizure, bit her tongue. Depression and anxiety. On Gabapentin, Prozac, ativan. DESCRIPTION OF RECORD: Recording shows a diffuse 8 Hz, 60 microvolt rhythm with diffuse beta rhythms, consistent with the benzodiazepine use. No hemisphere asymmetry is noted. No epileptiform or seizure activity is seen. Photic stimulation is performed without any posterior driving. Hyperventilation not performed. IMPRESSION: Normal awake electroencephalogram. Some medication effect was noted. No focal abnormality was noted. No seizure activity was seen. Cricket Nguyen MD DJM/KD , 04:46 PM , 04:51 PM
[2018-06-07 17:17] VITALS: BP 152/89; PULSE 101; RESP 22; TEMP 98; O2SAT 98
== END 2018-06-07 23:02 | disposition home or self-care (01) ==
LOC: NEDA 09:32 → NEPC 09:32 → NEPGCP 09:32
PROVIDERS: ADMIT Hospitalist; ATTEND Hospitalist
DX: K86.1 Other chronic pancreatitis; R56.9 Unspecified convulsions; Z80.1 Family history of malignant neoplasm of trachea, bronchus and lung; D53.9 Nutritional anemia, unspecified; E83.42 Hypomagnesemia; E87.6 Hypokalemia; E86.0 Dehydration; F32.9 Major depressive disorder, single episode, unspecified; K74.60 Unspecified cirrhosis of liver; F10.239 Alcohol dependence with withdrawal, unspecified; Z88.6 Allergy status to analgesic agent; Z79.4 Long term (current) use of insulin; I10 Essential (primary) hypertension; D72.819 Decreased white blood cell count, unspecified; F17.210 Nicotine dependence, cigarettes, uncomplicated; E11.40 Type 2 diabetes mellitus with diabetic neuropathy, unspecified; Z83.3 Family history of diabetes mellitus; F41.9 Anxiety disorder, unspecified